=== PATIENT | female | born 1950 | race Caucasian/White ===

== ENCOUNTER 2017-05-12 10:07 | Inpatient (IN) | payer MEDICARE ==
[~2017-05-12] VITALS: Ht 160 cm; Wt 61.7 kg
[2017-05-12] MEDS ORDERED: ASPIRIN 81 MG TAB.CHEW PO ONE (10:30)
--- NOTE | 2017-05-12 10:43 | EKG ---
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
--- NOTE | 2017-05-12 10:45 | PHYS DOC ---
General Chief Complaint: SHORTNESS OF BREATH Stated Complaint: SOA Time Seen by MD: 10:23 Source: patient Exam Limitations: no limitations Problems: History of Present Illness Initial Comments Patient is a 66-year-old female who comes private auto to the emergency department complaining of chest tightness and dyspnea. Patient states that for the past 2 days she's had worsening chest discomfort described as a tightness, she states that she can feel a rattle in her chest and relays that she's had pneumonia twice in the past year. She also says she's had cold symptoms for "the past month" but feels as if those particular symptoms are improving. Patient states that her dyspnea and chest tightness were worse/at their worst this morning after waking, she denies diaphoresis, nausea vomiting, arm or neck symptoms. She does say that she's had periods of chills and sweats with a nonproductive cough. She has an extensive smoking history, she quit smoking in the early but states she essentially smoked "all her life." Currently she uses an albuterol inhaler as needed, she denies COPD/emphysema diagnoses to date. She did use her inhaler before coming which did not help she also states that when she gets her dyspnea symptoms it triggers some anxiety and one tends to worsen the other. In the emergency department patient has mild chest tightness as she described "I just can't get the air out." She's been having dyspnea on exertion she also admits to paroxysmal nocturnal dyspnea and chronically sleeps at a 45 angle upright to enhance her breathing status. During questioning patient also admits to some abdominal bloating as is observed that she is somewhat distended. She denies focal abdominal tenderness and no focal symptoms are elicited through exam. ED vital signs: 97.7, 116, 20, 148/77, 98% room air Timing/Duration: getting worse, changing over time Severity: moderate Modifying Factors: improves with medication, worse with movement, improves with rest Associated Symptoms: chest pain, cough, diaphoresis, fever/chills, loss of appetite, malaise, shortness of breath, weakness Allergies: Coded Allergies: iohexol (Verified Allergy, Intermediate, CONTRAST MEDIA, 05/12/17) Penicillins (Verified Allergy, Unknown, 05/12/17) Sulfa (Sulfonamide Antibiotics) (Verified Allergy, Unknown, 05/12/17) Past Medical History Medical History: other (diabetes, hyperlipidemia, hypertension, hypothyroidism) Surgical History: other (hysterectomy, rib removal) Social History Smoker: quit greater than 1 year Alcohol: none Drugs: none Review of Systems Constitutional: see HPI EENTM: denies blurred vision, denies tearing, denies ear pain, denies ear discharge, denies nose congestion, denies throat swelling, denies mouth swelling Respiratory: see HPI Cardiovascular: see HPI, denies syncope Gastrointestinal: see HPI, denies diarrhea, denies nausea, denies vomiting Genitourinary: denies discharge, denies dysuria, denies frequency, denies hematuria Musculoskeletal: denies back pain, denies joint swelling, denies neck pain Psychiatric/Neurological: denies headache, denies numbness, denies paresthesia , denies pre-existing deficit, denies seizure Hematologic/Lymphatic: denies blood clots, denies easy bleeding, denies easy bruising Physical Exam General Appearance: WD/WN, no apparent distress Eyes: bilateral eye normal inspection, bilateral eye PERRL, bilateral eye EOMI Ear, Nose, Throat: hearing grossly normal, normal ENT inspection, normal pharynx Neck: non-tender, full range of motion, supple, normal inspection, other ( bruising noted in the submandibular region patient states this is due to recent dental work) Respiratory: chest non-tender, decreased breath sounds, other (mildly decreased breath sounds globally with some rales at the bases, chest is nontender no respiratory distress) Cardiovascular: normal peripheral pulses, tachycardia Gastrointestinal: normal bowel sounds, soft, other (distended with mild generalized tenderness no focality, no rebound or guarding no masses palpated) Back: no CVA tenderness, no vertebral tenderness Extremities: normal range of motion, non-tender, no calf tenderness, pelvis stable, other (one plus pitting lower extremity edema) Neurologic/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 3 prior EKGs submitted to ut all with extensive artifact and essentially unusable. EKG (1039): Sinus tachycardia 106 bpm, baseline wander artifact noted, T contour abnormalities with no STEMI changes noted, no prior for comparison. Interpreted by Dr. Bingham. 1149: D-dimer elevated, as patient presents with dyspnea and chest tightness and tachycardia patient will need evaluation for pulmonary embolus. CTA of the chest initially ordered and immediately discontinued as patient has history to contrast dye. She will need a VQ scan once admitted. Patient received aspirin by mouth, Solu-Medrol and Zithromax IV as well as a DuoNeb treatment. She reports minimal improvement in symptoms. PATIENT: YARELI ODEN ACCOUNT: [id number] : 1950 LOCATION: ER AGE: 66 SEX: F EXAM STATUS: PRE ER ORD. PHYSICIAN: ADELAIDE BINGHAM DO REASON: chest pain, sob, abdominal distension PROCEDURE: ACUTE ABDOMEN SERIES Two-view abdominal series and PA view chest x-ray History: Chest pain. Bloated. Abdominal distention. Comparison: None available. Findings: No obstructive bowel pattern is seen. No significant air-fluid levels are seen. No free intraperitoneal air is seen. Spleen is enlarged measuring about 19 cm in length. Chest x-ray demonstrates bilateral interstitial lung disease and peribronchial thickening. Small bilateral pleural effusions are seen. No pneumothorax is evident. The heart size is at the upper limits of normal. The mediastinum is unremarkable. Surgical clips are seen in the left axillary region. IMPRESSION: Bilateral interstitial lung infiltrates and peribronchial thickening. This could represent interstitial pulmonary edema or interstitial pneumonitis. Small bilateral pleural effusions. Splenomegaly. DICTATED AND SIGNED BY: CRISTINA ROBERSON MD DATE: 05/12/17 2813 CC: KOKO SCHMIDT DO; ADELAIDE BINGHAM DO ~ Impressions: Respiratory distress Bilateral lower lobe infiltrates versus edema Elevated d-dimer rule out PE Chest pain Elevated BNP 1244: I discussed the patient thoroughly with information systems supervisor hospitalist Dr. Montelongo. He requests inpatient telemetry admission with Levaquin antimicrobial treatment intravenously, continued respiratory distress support, follow cardiac enzymes and obtain echocardiogram. As the patient has allergy to contrast dye VQ will be completed. Due to the mixed picture of heart failure versus pneumonia and possible PE sepsis fluid protocol not followed initially. I discussed these issues with the patient she is agreeable to inpatient treatment and further evaluation. Departure Disposition: ADMITTED INPATIENT Condition: STABLE Additional Instructions: Inpatient telemetry admission Dr. Vaughn is accepting. ADELAIDE BINGHAM DO May 12, 2017 10:45
[2017-05-12 11:02] LABS: BASO % 0 % (0-3); EOS % 1 % (0-3); HEMATOCRIT 39.6 % (36.0-47.0); LYMPH # 0.6 x10^3/uL (1.0-4.8); LYMPH % 10 % (24-48); MEAN CORPUSCULAR HEMOGLOBIN 26 pg (25-35); MEAN CORPUSCULAR HGB CONC 33 g/dL (31-37); MEAN CORPUSCULAR VOLUME 80 fL (79-100); MONO # 0.3 x10^3/uL (0.0-1.1); MONO % 6 % (0-9); NEUT # 4.5 x10^3uL (1.8-7.7); NEUT % 83 % (31-73); PLATELET COUNT 150 x10^3/uL (140-400); RED BLOOD COUNT 4.93 x10^6/uL (3.50-5.40); RED CELL DISTRIBUTION WIDTH 14.4 % (11.5-14.5); WHITE BLOOD COUNT 5.4 x10^3/uL (4.0-11.0)
[2017-05-12] MEDS ORDERED: methylPREDNISolone SOD SUCC PF 125 MG/2 ML VIAL. IV ONE (11:15)
[2017-05-12] MEDS ORDERED: IPRATRPIUM/ALBUTEROL 0.5/2.5MG 3 ML NEBU. NEB ONE (11:15)
[2017-05-12 11:18] LABS: ALBUMIN 3.8 g/dL (3.4-5.0); ALBUMIN/GLOBULIN RATIO 1.1 (1.0-1.7); CALCIUM 8.8 mg/dL (8.5-10.1); CREATININE 0.7 mg/dL (0.6-1.0); GFR 83.2; POTASSIUM 3.9 mmol/L (3.5-5.1); TOTAL BILIRUBIN 0.5 mg/dL (0.2-1.0); TOTAL PROTEIN 7.4 g/dL (6.4-8.2)
[2017-05-12] MEDS ORDERED: AZITHROMYCIN 500 MG in IV NORMAL SALINE 250ML 250 ML IV ONE (11:45)
[2017-05-12] MEDS ORDERED: IV NORMAL SALINE 250ML 250 ML ONE (11:49)
[2017-05-12] MEDS ORDERED: AZITHROMYCIN 500 MG VIAL. IV ONE (11:50)
--- NOTE | 2017-05-12 12:13 | RAD ---
Two-view abdominal series and PA view chest x-ray History: Chest pain. Bloated. Abdominal distention. Comparison: None available. Findings: No obstructive bowel pattern is seen. No significant air-fluid levels are seen. No free intraperitoneal air is seen. Spleen is enlarged measuring about 19 cm in length. Chest x-ray demonstrates bilateral interstitial lung disease and peribronchial thickening. Small bilateral pleural effusions are seen. No pneumothorax is evident. The heart size is at the upper limits of normal. The mediastinum is unremarkable. Surgical clips are seen in the left axillary region. IMPRESSION: Bilateral interstitial lung infiltrates and peribronchial thickening. This could represent interstitial pulmonary edema or interstitial pneumonitis. Small bilateral pleural effusions. Splenomegaly.
[2017-05-12 12:21] LABS: BGAS PH 7.45 (7.35-7.45)
[2017-05-12] MEDS ORDERED: ACETAMINOPHEN 325 MG TABLET PO PRN (13:00)
[2017-05-12] MEDS ORDERED: ONDANSETRON PF 4 MG/2 ML VIAL. IV PRN (13:00)
[2017-05-12 13:22] LABS: AMPHETAMINE/METHAMPHETAMINE NEG (NEG); BARBITURATES NEG (NEG); BENZODIAZEPINES NEG (NEG); CANNABINOIDS NEG (NEG); COCAINE NEG (NEG); METHADONE NEG (NEG); OPIATES NEG (NEG); PHENCYCLIDINE NEG (NEG)
[2017-05-12 13:24] LABS: BACTERIA,URINE 0 /HPF (0-FEW); BILIRUBIN,URINE NEG (NEG); CLARITY,URINE CLEAR; COLOR,URINE YELLOW; GLUCOSE,URINE NEG (NEG); NITRITE,URINE NEG (NEG); RBC,URINE 0 /HPF (0-2); SQUAMOUS EPITHELIAL CELL,UR OCC /LPF; UROBILINOGEN,URINE 0.2 mg/dL (0.2 mg/dL); WBC,URINE 0 /HPF (0-4)
[2017-05-12] MEDS ORDERED: LISI10TA2 PO (14:44)
[2017-05-12] MEDS ORDERED: CYCL5TAB PO (14:44)
[2017-05-12] MEDS ORDERED: LEVO112T4 PO (14:44)
[2017-05-12] MEDS ORDERED: FENO134C PO (14:44)
[2017-05-12] MEDS ORDERED: INSU100C SQ (14:44)
[2017-05-12] MEDS ORDERED: INSU100V13 SQ (14:44)
[2017-05-12] MEDS ORDERED: AMIT25TA PO (14:53)
[2017-05-12] MEDS ORDERED: SERT50TA PO (14:53)
[2017-05-12] MEDS ORDERED: METF10002 PO (14:53)
[2017-05-12] MEDS ORDERED: ATOR40TA59 PO (14:53)
[2017-05-12 15:00] VITALS: BP 151/61
[2017-05-12 15:04] VITALS: BP 146/72
[2017-05-12] MEDS: IPRATRPIUM/ALBUTEROL 0.5/2.5MG 3 ML NEBU. NEB SCH ×2 (15:25→20:40)
[2017-05-12] MEDS ORDERED: IV NORMAL SALINE 1,000ML 1,000 ML IV ONE ×2 (17:30→18:45)
[2017-05-12] MEDS: metFORMIN 500 MG TABLET PO SCH (18:03)
[2017-05-12] MEDS: INSULIN ASPART 300 UNITS/3 ML INSULN.PEN SQ SCH (18:06)
[2017-05-12] MEDS ORDERED: SODIUM CHLORIDE 0.65% NASAL SPRAY 45ML BOTTLE. NS PRN (18:30)
[2017-05-12] MEDS ORDERED: ACETAMINOPHEN 650 MG/20.3 ML SOLUTION. PO PRN (18:30)
[2017-05-12] MEDS: diphenhydrAMINE HCL 25 MG CAPSULE PO PRN (18:50)
[2017-05-12 19:19] VITALS: BP 135/61
[2017-05-12] MEDS: AMITRIPTYLINE HCL 25 MG TABLET PO SCH (20:38)
[2017-05-12] MEDS: CYCLOBENZAPRINE 10 MG TABLET. PO SCH (20:38)
[2017-05-12] MEDS: ENOXAPARIN ** NOTE DOSE ** SYRINGE SQ SCH (20:38)
[2017-05-12] MEDS: INSULIN DETEMIR 300 UNITS/3 ML INSULN.PEN. SQ SCH (20:39)
--- NOTE | 2017-05-12 20:48 | HP ---
ADMIT DATE: 05/12/2017 HISTORY OF PRESENT ILLNESS: The patient is a 66-year-old female patient who came to the Emergency Room today complaining of episodes of shortness of breath, orthopnea, paroxysmal nocturnal dyspnea that have been going on for a month and a half. She also has poorly controlled diabetes for which she saw an finger buffs assembler and her insulin regimen has been changed and has recurrent episodes of hypoglycemia. She was evaluated in the Emergency Room and apparently was diagnosed with bilateral lower lobe infiltrate versus edema, elevated D-dimer to rule out pulmonary embolism, chest pain and elevated BNP. She was admitted and was given steroids as well as antibiotics and we will do 2 more sets of cardiac enzymes, check her fasting lipid profile, and consult a explosive ordnance disposal specialist since her symptoms are mostly cardiac, although her D-dimer was slightly elevated at 0.86 and her lactic acid was slightly high at 3. PAST MEDICAL HISTORY: Significant for type 2 diabetes, hypertension, hyperlipidemia, hypothyroidism, osteoarthritis, psoriasis. She apparently had an episode of left side empyema and the right shoulder septic arthritis. PAST SURGICAL HISTORY: Significant for appendectomy, total abdominal hysterectomy and bilateral salpingo-oophorectomy and empyema drainage of the left chest and drainage of right shoulder joint. She has also esophagogastroduodenoscopy and colonoscopy. ALLERGIES: SHE IS ALLERGIC TO PENICILLIN, SULFA DRUGS, AND CONTRAST DYE. MEDICATIONS: She is currently on following medications: She is on amitriptyline 25 mg at bedtime, atorvastatin calcium 40 mg at bedtime, cyclobenzaprine 5 mg p.o. t.i.d., fenofibrate 134 mg once a day. She is on detemir insulin 62 units subcutaneously twice a day, insulin lispro 20 units before meals, levothyroxine sodium 112 mcg once a day, lisinopril 10 mg daily, and metformin 1000 mg p.o. b.i.d. She is also on sertraline 50 mg tablet once a day. FAMILY HISTORY: She has 2 sisters, one older that she does not keep in touch and one younger seems healthy. Her father in his early 70s because of alcoholism and mother in her early 70s because of lung cancer. SOCIAL HISTORY: She is . She has 3 sons and 1 daughter. She is an ex-smoker, quit smoking in . She used to smoke a pack a day. She said she practically has smoked all her life as a secondhand smoker. 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 REVIEW OF SYSTEMS: The patient denied any blurring of vision, cataract, glaucoma, or macular degeneration. Denied any earache, tinnitus, or sensorineural deafness. Denied any nosebleeds, stuffy nose, or postnasal drip. Denied any sore throat, sore tongue, toothache, hoarseness of voice, or difficulty swallowing. Denied any nausea, vomiting but did have diarrhea and constipation. Her abdomen is bloated, stated all because of the steroids the patient has been using for her psoriasis. She denied any hematemesis, melena, or hematochezia. Denied any dysuria, frequency, or hematuria. Did complain of chest tightness and shortness of breath and describes typical paroxysmal nocturnal dyspnea. PHYSICAL EXAMINATION: GENERAL: On arrival to the Emergency Room, she apparently was pale, but no jaundice, cyanosis or thyromegaly. No jugular venous distention. No limb edema. VITAL SIGNS: Her heart rate was 116, blood pressure was 134/65, temperature was 97.7, respiratory rate 20, and oxygen saturation was 98%. HEENT: Showed normocephalic, atraumatic. NECK: Supple. HEART: Showed normal first and second heart sounds with no gallop, rub or murmur. CHEST: Clear to auscultation. No crepitation or rhonchi. ABDOMEN: Distended, soft, nontender. No guarding or rigidity. No organomegaly. Hernial orifice is intact. Bowel sounds normal. NEUROLOGIC: She is awake, alert, responding appropriately. Cranial nerves are intact. EXTREMITIES: She moves extremities without difficulty. She ambulates without assistance or assistive devices. LABORATORY AND DIAGNOSTIC DATA: Her lab work showed a white cell count 5400, hemoglobin 13, hematocrit 39, MCV 80, and platelet count of 150,000 with normal manual differential. Her blood gases showed a pH of 7.45, pCO2 of 31, pO2 of 96, bicarbonate 21 and oxygen saturation was 98% on FiO2 of 21%. Her chemistry showed a serum sodium of 141, potassium 3.9, chloride 106, bicarbonate 23, anion gap of 12, BUN 12, creatinine 0.7, estimated GFR was 83 mL per minute. Her glucose was 82 and lactic acid was 3. Calcium was 8.8. Total bilirubin, AST, ALT, alkaline phosphatase were normal. Beta natriuretic peptide was 1420. Total protein 7.4, albumin 3.8, lipase 131. Lactic acid was 3. First cardiac enzyme was troponin less than 0.017. Her urinalysis showed the urine was yellow, clear with a pH of 6, specific gravity 1.005. The urine was negative for protein, glucose, ketones, blood, nitrite, and leukocyte esterase. There were 0 rbc's, 0 wbc's, and no bacteria. Her urine toxicology screen was essentially negative. The patient has a x-ray of the chest, abdomen and pelvis, which showed that there is no obstructive bowel pattern seen, no significant air fluid levels are seen. No free intraperitoneal air seen. Spleen is enlarged and measured about 19 cm in length. Chest x-ray demonstrates bilateral interstitial lung disease and peribronchial thickening. Small bilateral pleural effusions are seen. No pneumothorax is evident. The heart size is the upper limit of normal. The mediastinum is unremarkable. Surgical clips are seen in the left axillary region. The impression is that the patient has bilateral interstitial lung infiltrate and peribronchial thickening. This could represent interstitial pulmonary edema or interstitial pneumonitis, small bilateral pleural effusion and splenomegaly. PLAN: My plan is to continue with IV antibiotic. Continue with all her other medications. I will do 2 more sets of cardiac enzyme. We will check her fasting lipid profile and thyroid function, check an echocardiogram and consult the Cardiology team and decide the further management accordingly. OTF DRUMMOND MD DR: NATALIE/praful JOB#: [id number] / [id number]
[2017-05-13] VITALS (7 sets, daily range): BP systolic 105–136; BP diastolic 53–75
[2017-05-13] MEDS: IPRATRPIUM/ALBUTEROL 0.5/2.5MG 3 ML NEBU. NEB SCH ×4 (05:51→21:16)
[2017-05-13] MEDS: LEVOTHYROXINE 112 MCG TABLET PO SCH (05:53)
[2017-05-13 06:57] LABS: BASO % 0 % (0-3); EOS % 0 % (0-3); HEMATOCRIT 34.1 % (36.0-47.0); HEMOGLOBIN 11.2 g/dL (12.0-15.5); LYMPH # 0.6 x10^3/uL (1.0-4.8); LYMPH % 9 % (24-48); MEAN CORPUSCULAR HEMOGLOBIN 27 pg (25-35); MEAN CORPUSCULAR HGB CONC 33 g/dL (31-37); MEAN CORPUSCULAR VOLUME 81 fL (79-100); MONO # 0.2 x10^3/uL (0.0-1.1); MONO % 4 % (0-9); NEUT # 5.2 x10^3uL (1.8-7.7); NEUT % 86 % (31-73); PLATELET COUNT 145 x10^3/uL (140-400); RED BLOOD COUNT 4.22 x10^6/uL (3.50-5.40); RED CELL DISTRIBUTION WIDTH 14.6 % (11.5-14.5)
[2017-05-13 07:06] LABS: ALBUMIN 3.3 g/dL (3.4-5.0); CALCIUM 8.7 mg/dL (8.5-10.1); CREATININE 0.8 mg/dL (0.6-1.0); GFR 71.3; POTASSIUM 4.2 mmol/L (3.5-5.1); TOTAL BILIRUBIN 0.4 mg/dL (0.2-1.0); TOTAL PROTEIN 6.7 g/dL (6.4-8.2)
[2017-05-13] MEDS: SERTRALINE 50 MG TABLET. PO SCH (08:14)
[2017-05-13] MEDS: metFORMIN 500 MG TABLET PO SCH ×2 (08:14→16:21)
[2017-05-13] MEDS: ATORVASTATIN CALCIUM 20 MG TABLET PO SCH (08:14)
[2017-05-13] MEDS: LISINOPRIL 10 MG TABLET PO SCH (08:14)
[2017-05-13] MEDS: CYCLOBENZAPRINE 10 MG TABLET. PO SCH ×3 (08:15→21:22)
[2017-05-13] MEDS: FENOFIBRATE NANOCRYSTALLIZED 145 MG TABLET PO SCH (08:15)
[2017-05-13] MEDS: ENOXAPARIN ** NOTE DOSE ** SYRINGE SQ SCH (08:15)
[2017-05-13] MEDS: INSULIN ASPART 300 UNITS/3 ML INSULN.PEN SQ SCH ×3 (08:20→16:20)
[2017-05-13] MEDS: INSULIN DETEMIR 300 UNITS/3 ML INSULN.PEN. SQ SCH ×2 (08:21→21:24)
[2017-05-13] MEDS ORDERED: IV NORMAL SALINE 1,000ML 1,000 ML IV ONE (09:15)
--- NOTE | 2017-05-13 09:50 | PDOC2 ---
JAY MELVIN APRN 05/13/17 0950: CONSULT Date of Admission DATE: 05/13/17 TIME: 09:50 Reason for Consult: chest pain Problem List Problems Medical Problems: (1) Pneumonia Status: Acute History of Present Illness Ms Dooley is a 66 year old female who presents with complaints of orthopnea/PND and chest tightness. She reports episodes of PND starting about 1 month ago and has been sleeping with head of bed at 45 degree angle for quiet some time. She describes the chest tightness as a feeling of not being able to get a deep breath. she denies palpitatons, lightheadedness or syncope. She reports occasional edema during the summer. She reports feeling like her belly is swollen. Past Medical History hypertension, hyperlipidemia, diabetes mellitus, hypothyroid, septic arthritis Past Surgical History hysterectomy, oophorectomy , drainage of empyema left chest and shoulder, bladder suspension Family History Her father in his early 70s because of alcoholism and mother in her early 70s because of lung cancer and had history of heart failure. Social History quit smoking in , smoked 1PPD for most of her life. She denies ETOH or illicit drug use. Current Medications Current Medications Aspirin (Children'S Aspirin) 324 mg 1X ONCE PO Last administered on 05/12/17 10:55; Start 05/12/17 at 10:30; Stop 05/12/17 at 10:35; Status DC Albuterol/ Ipratropium (Duoneb) 3 ml 1X ONCE NEB Last administered on 11:20; Start 05/12/17 at 11:15; Stop 05/12/17 at 11:16; Status DC Methylprednisolone Sodium Succinate (SOLU-Medrol 125MG VIAL) 125 mg 1X ONCE IV Last administered on 05/12/17 11:27; Start 05/12/17 at 11:15; Stop 05/12/17 at 11:16; Status DC Azithromycin 500 mg/Sodium Chloride 250 ml @ 250 mls/hr 1X ONCE IV Last administered on 05/12/17 11:45; Start 05/12/17 at 11:45; Stop 05/12/17 at 12:44 ; Status DC Sodium Chloride 250 ml @ As Directed STK-MED ONCE .ROUTE ; Start 05/12/17 at 11 :49; Stop 05/12/17 at 11:50; Status DC Azithromycin (Zithromax) 500 mg STK-MED ONCE IV ; Start 05/12/17 at 11:50; Stop 05/12/17 at 11:51; Status DC Ondansetron HCl (Zofran) 4 mg PRN Q4HRS PRN IV NAUSEA/VOMITING; Start 05/12/17 at 13:00; Stop 05/13/17 at 12:59 Acetaminophen (Tylenol) 650 mg PRN Q4HRS PRN PO FEVER Last administered on 05/12 18:50; Start 05/12/17 at 13:00; Stop 05/13/17 at 12:59 Albuterol/ Ipratropium (Duoneb) 3 ml RTQID NEB Last administered on 05/13/17 09:49; Start 05/12/17 at 16:00; Stop 05/13/17 at 15:59 Amitriptyline HCl (Elavil) 25 mg QHS PO Last administered on 05/12/17 20:38; Start 05/12/17 at 21:00 Levothyroxine Sodium (Synthroid) 112 mcg DAILY07 PO Last administered on 05:53; Start 05/13/17 at 07:00 Lisinopril (Prinivil) 10 mg DAILY PO Last administered on 05/13/17 08:14; Start 05/13/17 at 09:00 Sertraline HCl (Zoloft) 50 mg DAILY PO Last administered on 05/13/17 08:14; Start 05/13/17 at 09:00 Atorvastatin Calcium (Lipitor) 40 mg DAILY PO Last administered on 05/13/17 08 :14; Start 05/13/17 at 09:00 Cyclobenzaprine HCl (Flexeril) 5 mg TID PO Last administered on 05/13/17 08:15 ; Start 05/12/17 at 21:00 Fenofibrate (Tricor) 145 mg DAILY PO Last administered on 05/13/17 08:15; Start 05/13/17 at 09:00 Insulin Detemir (Levemir) 62 units BID SQ Last administered on 05/13/17 08:21 ; Start 05/12/17 at 21:00 Insulin Aspart (NovoLOG) 20 units TIDWMEALS SQ Last administered on 05/13/17 08:20; Start 05/12/17 at 18:00 Metformin HCl (Glucophage) 1,000 mg BIDWMEALS PO Last administered on 08:14; Start 05/12/17 at 18:00 Levofloxacin/ Dextrose 100 ml @ 100 mls/hr Q24H IV Last administered on 18:02; Start 05/12/17 at 18:00 Enoxaparin Sodium (Lovenox 60mg Syringe) 60 mg Q12HR SQ Last administered on 08:15; Start 05/12/17 at 21:00 Sodium Chloride 1,000 ml @ 1,000 mls/hr 1X ONCE IV Last administered on 17:30; Start 05/12/17 at 17:30; Stop 05/12/17 at 18:29; Status DC Sodium Chloride (Saline Mist Nasal) 1 t[place]ira PRN Q1HR PRN NS NASAL CONGESTION; Start 05/12/17 at 18:30 Acetaminophen (Tylenol) 650 mg PRN Q6HRS PRN PO PAIN / TEMP; Start 05/12/17 at 18:30 Diphenhydramine HCl (Benadryl) 25 mg PRN Q6HRS PRN PO ITCHING Last administered on 05/12/17 18:50; Start 05/12/17 at 18:30 Sodium Chloride 1,000 ml @ 1,000 mls/hr 1X ONCE IV Last administered on 18:00; Start 05/12/17 at 18:45; Stop 05/12/17 at 19:44; Status DC Sodium Chloride 1,000 ml @ 1,000 mls/hr 1X ONCE IV Last administered on 09:28; Start 05/13/17 at 09:15; Stop 05/13/17 at 10:14 Active Scripts Active Reported Amitriptyline Hcl 25 Mg Tablet 1 Tab PO QHS Atorvastatin Calcium 40 Mg Tablet 1 Tab PO DAILY Metformin Hcl 1,000 Mg Tablet 1 Tab PO BID Zoloft (Sertraline Hcl) 50 Mg Tablet 1 Tab PO DAILY Humalog (Insulin Lispro) 100 Unit/1 Ml Cartridge 20 Unit SQ TID Levemir (Insulin Detemir) 100 Unit/1 Ml Vial 62 Unit SQ BID Lisinopril 10 Mg Tablet 1 Tab PO DAILY Fenofibrate (Fenofibrate,Micronized) 134 Mg Capsule 1 Cap PO DAILY Cyclobenzaprine Hcl 5 Mg Tablet 1 Tab PO TID Levothyroxine Sodium 112 Mcg Tablet 1 Tab PO DAILY Allergies: Coded Allergies: Penicillins (Verified Allergy, Intermediate, 05/13/17) Sulfa (Sulfonamide Antibiotics) (Verified Allergy, Intermediate, 05/13/17) iohexol (Verified Allergy, Intermediate, CONTRAST MEDIA, 05/12/17) Review of System as per HPI General: Alert, Oriented X3, Cooperative, No acute distress HEENT: Atraumatic, Other (+HJR) Lungs: Other (bibasilar crackles) Heart: Regular rate, Normal S1, Normal S2, Other (no gallops, clicks or rubs) Abdomen: Soft, Other (distended, + bowel sounds) Extremities: No cyanosis, No edema, Normal pulses, Other (chronic venous stasis changes) Neuro: Normal speech, Strength at 5/5 X4 ext Psych/Mental Status: Mental status NL, Mood NL VITALS Vital Signs Date Time Temp Pulse Resp B/P (MAP) Pulse Ox O2 Delivery O2 Flow Rate FiO2 05/13/17 08:14 110 135/75 05/13/17 08:00 Room Air 05/13/17 07:00 98.1 20 98 05/13/17 05:51 2.0 Labs Laboratory Tests Test 05/12/17 10:42 05/12/17 12:15 05/12/17 13:05 05/12/17 14:48 White Blood Count 5.4 x10^3/uL (4.0-11.0) Red Blood Count 4.93 x10^6/uL (3.50-5.40) Hemoglobin 13.0 g/dL (12.0-15.5) Hematocrit 39.6 % (36.0-47.0) Mean Corpuscular Volume 80 fL (79-100) Mean Corpuscular Hemoglobin 26 pg (25-35) Mean Corpuscular Hemoglobin Concent 33 g/dL (31-37) Red Cell Distribution Width 14.4 % (11.5-14.5) Platelet Count 150 x10^3/uL (140-400) Neutrophils (%) (Auto) 83 % (31-73) Lymphocytes (%) (Auto) 10 % (24-48) Monocytes (%) (Auto) 6 % (0-9) Eosinophils (%) (Auto) 1 % (0-3) Basophils (%) (Auto) 0 % (0-3) Neutrophils # (Auto) 4.5 x10^3uL (1.8-7.7) Lymphocytes # (Auto) 0.6 x10^3/uL (1.0-4.8) Monocytes # (Auto) 0.3 x10^3/uL (0.0-1.1) Eosinophils # (Auto) 0.0 x10^3/uL (0.0-0.7) Basophils # (Auto) 0.0 x10^3/uL (0.0-0.2) D-Dimer (Nichole) 0.86 mg/L (0.00-0.50) Sodium Level 141 mmol/L (136-145) Potassium Level 3.9 mmol/L (3.5-5.1) Chloride Level 106 mmol/L (98-107) Carbon Dioxide Level 23 mmol/L (21-32) Anion Gap 12 (6-14) Blood Urea Nitrogen 12 mg/dL (7-20) Creatinine 0.7 mg/dL (0.6-1.0) Estimated GFR (Cockcroft-Gault) 83.2 BUN/Creatinine Ratio 17 (6-20) Glucose Level 82 mg/dL (70-99) Lactic Acid Level 3.0 mmol/L (0.4-2.0) Calcium Level 8.8 mg/dL (8.5-10.1) Total Bilirubin 0.5 mg/dL (0.2-1.0) Aspartate Amino Transf (AST/SGOT) 31 U/L (15-37) Alanine Aminotransferase (ALT/SGPT) 41 U/L (14-59) Alkaline Phosphatase 63 U/L (46-116) Creatine Kinase 62 U/L (26-192) Troponin I Quantitative < 0.017 ng/mL (0-0.055) EE-Xsk-O-Type Natriuretic Peptide 1420 pg/mL (0-124) Total Protein 7.4 g/dL (6.4-8.2) Albumin 3.8 g/dL (3.4-5.0) Albumin/Globulin Ratio 1.1 (1.0-1.7) Lipase 131 U/L (73-393) Blood Gas pH 7.45 (7.35-7.45) Blood Gas PCO2 31 mmHg (35-45) Blood Gas PO2 96 mmHg (80-100) Blood Gas HCO3 21 mmol/L (22-26) Arterial Bld O2 Saturation (Calc) 98 % (92-99) FiO2 21 % Urine Collection Type Unknown Urine Color Yellow Urine Clarity Clear Urine pH 6.0 Urine Specific [place] <=1.005 Urine Protein Neg (NEG-TRACE) Urine Glucose (UA) Neg mg/dL (NEG) Urine Ketones (Stick) Neg mg/dL (NEG) Urine Blood Neg (NEG) Urine Nitrite Neg (NEG) Urine Bilirubin Neg (NEG) Urine Urobilinogen Dipstick 0.2 mg/dL (0.2 mg/dL) Urine Leukocyte Esterase Neg (NEG) Urine RBC 0 /HPF (0-2) Urine WBC 0 /HPF (0-4) Urine Squamous Epithelial Cells Occ /LPF Urine Bacteria 0 /HPF (0-FEW) Urine Opiates Screen Neg (NEG) Urine Methadone Screen Neg (NEG) Urine Barbiturates Neg (NEG) Urine Phencyclidine Screen Neg (NEG) Urine Amphetamine/Methamphetamine Neg (NEG) Urine Benzodiazepines Screen Neg (NEG) Urine Cocaine Screen Neg (NEG) Urine Cannabinoids Screen Neg (NEG) Urine Ethyl Alcohol Neg (NEG) Nasal Screen MRSA (PCR) Negative (Negative) Test 05/12/17 15:50 05/12/17 15:55 05/12/17 16:39 05/12/17 18:25 Glucose (Fingerstick) 174 mg/dL (70-99) 225 mg/dL (70-99) Lactic Acid Level 4.2 mmol/L (0.4-2.0) Troponin I Quantitative < 0.017 ng/mL (0-0.055) Test 05/12/17 20:28 05/13/17 00:30 05/13/17 03:23 05/13/17 06:01 Glucose (Fingerstick) 255 mg/dL (70-99) 152 mg/dL (70-99) Troponin I Quantitative < 0.017 ng/mL (0-0.055) White Blood Count 6.0 x10^3/uL (4.0-11.0) Red Blood Count 4.22 x10^6/uL (3.50-5.40) Hemoglobin 11.2 g/dL (12.0-15.5) Hematocrit 34.1 % (36.0-47.0) Mean Corpuscular Volume 81 fL (79-100) Mean Corpuscular Hemoglobin 27 pg (25-35) Mean Corpuscular Hemoglobin Concent 33 g/dL (31-37) Red Cell Distribution Width 14.6 % (11.5-14.5) Platelet Count 145 x10^3/uL (140-400) Neutrophils (%) (Auto) 86 % (31-73) Lymphocytes (%) (Auto) 9 % (24-48) Monocytes (%) (Auto) 4 % (0-9) Eosinophils (%) (Auto) 0 % (0-3) Basophils (%) (Auto) 0 % (0-3) Neutrophils # (Auto) 5.2 x10^3uL (1.8-7.7) Lymphocytes # (Auto) 0.6 x10^3/uL (1.0-4.8) Monocytes # (Auto) 0.2 x10^3/uL (0.0-1.1) Eosinophils # (Auto) 0.0 x10^3/uL (0.0-0.7) Basophils # (Auto) 0.0 x10^3/uL (0.0-0.2) Sodium Level 142 mmol/L (136-145) Potassium Level 4.2 mmol/L (3.5-5.1) Chloride Level 106 mmol/L (98-107) Carbon Dioxide Level 25 mmol/L (21-32) Anion Gap 11 (6-14) Blood Urea Nitrogen 15 mg/dL (7-20) Creatinine 0.8 mg/dL (0.6-1.0) Estimated GFR (Cockcroft-Gault) 71.3 BUN/Creatinine Ratio 19 (6-20) Glucose Level 135 mg/dL (70-99) Lactic Acid Level 2.9 mmol/L (0.4-2.0) Calcium Level 8.7 mg/dL (8.5-10.1) Total Bilirubin 0.4 mg/dL (0.2-1.0) Aspartate Amino Transf (AST/SGOT) 22 U/L (15-37) Alanine Aminotransferase (ALT/SGPT) 36 U/L (14-59) Alkaline Phosphatase 54 U/L (46-116) Total Protein 6.7 g/dL (6.4-8.2) Albumin 3.3 g/dL (3.4-5.0) Albumin/Globulin Ratio 1.0 (1.0-1.7) Test 05/13/17 07:38 Glucose (Fingerstick) 125 mg/dL (70-99) Images Abdominal series IMPRESSION: Bilateral interstitial lung infiltrates and peribronchial thickening. This could represent interstitial pulmonary edema or interstitial pneumonitis. Small bilateral pleural effusions. Assessment/Plan 1. CHF - CXR this am, lasix x 1 now, await echo for systolic function. 2. Chest pain - Darryn negative. EKG without acute ischemic changes. Check echo. 3. hypertension - controlled on home meds 4. hyperlipidemia - check lipids and resume statin Problems: JOSE RAMON PEREIRA MD 05/13/17 1502: CONSULT Allergies: Coded Allergies: Penicillins (Verified Allergy, Intermediate, 05/13/17) Sulfa (Sulfonamide Antibiotics) (Verified Allergy, Intermediate, 05/13/17) iohexol (Verified Allergy, Intermediate, CONTRAST MEDIA, 05/12/17) Assessment/Plan Patient seen and examined. Agree with MANAGER TARGET's assessment and plan. Chest pain with atypical features. Myocardial infarction ruled out. Congestive heart failure most probably acute on chronic diastolic, better compensated with Lasix. Check 2-D echo to assess LV function and rule out wall motion abnormalities. Further ischemic workup in the formal stress test could be considered as an outpatient. Thank you for your consultation. Problems: JAY MELVIN APRN May 13, 2017 09:50 JOSE RAMON PEREIRA MD May 13, 2017 15:02
[2017-05-13] MEDS ORDERED: FUROSEMIDE 20 MG/2 ML VIAL IVP ONE (12:00)
--- NOTE | 2017-05-13 12:59 | RAD ---
V/Q lung scan History: Elevated d-dimer. Chest pain. Comparison: Chest x-ray dated May 13, 2017. No previous lung scan available. Technique: After inhalation of 12.7 mCi of xenon-133 gas, anterior and posterior planar images of both lung omalley were performed in the single breath, equilibrium and washout phases. After IV infusion of 5.3 mCi of technetium 99m MAA, multiplanar images of both lung omalley were performed. Findings: No ventilatory defect or significant air-trapping is seen. Normal physiologic perfusion is seen. IMPRESSION: Normal V/Q lung scan.
--- NOTE | 2017-05-13 16:31 | RAD ---
Two-view chest x-ray History: Dyspnea Comparison: May 12, 2017. Findings: There is an increase in bilateral interstitial lung infiltrates or pulmonary edema. Small bilateral pleural effusions are stable. No pneumothorax is seen. The heart size and mediastinum and pulmonary vasculature are unchanged. Osseous structures remain intact. Surgical clips are seen within the left axillary region. IMPRESSION: Increasing bilateral interstitial infiltrates or interstitial pulmonary edema.
--- NOTE | 2017-05-13 17:31 | CARD ---
APPROVED REPORT EXAM: Two-dimensional and M-mode echocardiogram with Doppler and color Doppler. Other Information Quality : Good INDICATION Chest Pain Congestive Heart Failure DX ELEVATED BNP 2D DIMENSIONS Left Atrium(2D)3.9 (1.6-4.0cm)IVSd1.1 (0.7-1.1cm) Aortic Root(2D)2.9 (2.0-3.7cm)LVDd5.6 (3.9-5.9cm) LVOT Diameter2.0 (1.8-2.4cm)PWd1.2 (0.7-1.1cm) LVDs4.7 (2.5-4.0cm)FS (%) 16.4 % SV52.0 mlLVEF(%)34.0 (>50%) Aortic Valve AoV Peak Davy.109.3cm/sAoV VTI19.7cm AO Peak GR.4.8mmHgLVOT Peak Davy.71.4cm/s LVOT VTI 12.96cmAO Mean GR.3mmHg RYDER (VMAX)1.64ww7ZQR (VTI)1.99cm2 Mitral Valve MV E Ymbvkcik071.6cm/sMV DECEL [id number] MV A Ujhufkdn57.6cm/sE/A Ratio2.6 Tricuspid Valve TR P. [id number]/sRAP [id number] TR Peak Gr.28xdAlEYRU39rmRh LEFT VENTRICLE The Left Ventricle is mildly dilated. There is mild concentric left ventricular hypertrophy. Left ayaan tricle systolic function is moderately impaired. The Ejection Fraction is 30%. There is moderate glob al hypokinesis of the left ventricle. Tissue Doppler imaging reveals abnormal left ventricular diasto lic dysfunction. RIGHT VENTRICLE The right ventricle is normal size. The right ventricular systolic function is normal. ATRIA The left atrium is mildly dilated. The right atrium size is normal. The interatrial septum is intact with no evidence for an atrial septal defect or patent foramen ovale as noted on 2-D or Doppler imagi ng. AORTIC VALVE The aortic valve is calcified but opens well. Doppler and Color Flow revealed trace to mild aortic re gurgitation. There is no significant aortic valvular stenosis. MITRAL VALVE The mitral valve is calcified but opens well. There is no evidence of mitral valve prolapse. There is no mitral valve stenosis. Doppler and Color-flow revealed mild mitral regurgitation. TRICUSPID VALVE The tricuspid valve is normal in structure and function. Doppler and Color Flow revealed mild tricusp id regurgitation. There is moderate pulmonary hypertension. The PA pressure was estimated at 42 mmHg. There is no tricuspid valve prolapse or vegetation. There is no tricuspid valve stenosis. PULMONIC VALVE The pulmonary valve is normal in structure and function. Doppler and Color Flow revealed no pulmonic valvular regurgitation. There is no pulmonic valvular stenosis. GREAT VESSELS The aortic root is normal in size. The ascending aorta is normal in size. The IVC is normal in size a nd collapses >50% with inspiration. PERICARDIAL EFFUSION Possible moderate to large left sided pleural effusion with a large sonolucent mass present. There is no evidence of significant pericardial effusion. Critical Notification Critical Value: No <Conclusion> Left ventricle systolic function is moderately impaired. The Ejection Fraction is 30%. Mild mitral regurgitation. Mild tricuspid regurgitation. The PA pressure was estimated at 42 mmHg. There is no evidence of significant pericardial effusion.
[2017-05-13] MEDS: diphenhydrAMINE HCL 25 MG CAPSULE PO PRN (21:22)
[2017-05-13] MEDS: AMITRIPTYLINE HCL 25 MG TABLET PO SCH (21:22)
[2017-05-13] MEDS: LACTOBACILLUS ACIDOPH & BULGAR 1 TABLET. PO SCH (21:22)
[2017-05-14 03:00] VITALS: BP 132/61
[2017-05-14] MEDS ORDERED: IPRATRPIUM/ALBUTEROL 0.5/2.5MG 3 ML NEBU. ONE (05:10)
[2017-05-14 06:27] LABS: HEMATOCRIT 35.7 % (36.0-47.0); HEMOGLOBIN 11.8 g/dL (12.0-15.5); RED BLOOD COUNT 4.42 x10^6/uL (3.50-5.40); RED CELL DISTRIBUTION WIDTH 14.7 % (11.5-14.5); WHITE BLOOD COUNT 5.8 x10^3/uL (4.0-11.0)
[2017-05-14 06:41] LABS: ALBUMIN 3.7 g/dL (3.4-5.0); CALCIUM 8.9 mg/dL (8.5-10.1); CREATININE 0.9 mg/dL (0.6-1.0); GFR 62.3; POTASSIUM 3.4 mmol/L (3.5-5.1); TOTAL BILIRUBIN 0.9 mg/dL (0.2-1.0); TOTAL PROTEIN 7.3 g/dL (6.4-8.2)
[2017-05-14] MEDS: LEVOTHYROXINE 112 MCG TABLET PO SCH (07:36)
--- NOTE | 2017-05-14 07:40 | PN ---
DATE: 05/13/2017 SUBJECTIVE: The patient is resting, slightly propped up in bed, in no apparent distress. On questioning her, she stated that she continued to have the same problem last night and paroxysmal nocturnal dyspnea as well as orthopnea. She has had 3 sets of cardiac enzymes that ruled out myocardial infarction with troponin to be less than 0.0173. She had a V/Q scan done as her D-dimer was slightly elevated at 0.86 and was read as negative, which showed that there is no ventilatory defect or significant airtrapping was seen, normal physiology perfusion is seen. The impression is that the patient has normal V/Q lung scan. She was seen by the Cardiology team and she was given Lasix this morning and recommended an echocardiogram to check her systolic function. IMPRESSION: The patient has congestive heart failure, probably acute on chronic diastolic. She had a chest x-ray done, the results of which is still pending and an echocardiogram, which was not done. She also has bilateral lower lobe infiltrate for which she is on Levaquin. PLAN: My plan is to continue with IV antibiotic. I cut down her Lovenox to only 40 mg once a day and we will repeat all her lab works tomorrow and obviously, decide according to the finding on her chest x-ray as well as her echocardiogram. OTF DRUMMOND MD DR: NATALIE/praful JOB#: [id number] / [id number]
[2017-05-14] MEDS: LACTOBACILLUS ACIDOPH & BULGAR 1 TABLET. PO SCH (08:17)
[2017-05-14] MEDS: CYCLOBENZAPRINE 10 MG TABLET. PO SCH ×2 (08:17→14:19)
[2017-05-14] MEDS: FENOFIBRATE NANOCRYSTALLIZED 145 MG TABLET PO SCH (08:17)
[2017-05-14] MEDS: ATORVASTATIN CALCIUM 20 MG TABLET PO SCH (08:17)
[2017-05-14] MEDS: SERTRALINE 50 MG TABLET. PO SCH (08:17)
[2017-05-14] MEDS: metFORMIN 500 MG TABLET PO SCH (08:17)
[2017-05-14] MEDS: LISINOPRIL 10 MG TABLET PO SCH (08:18)
[2017-05-14] MEDS: INSULIN ASPART 300 UNITS/3 ML INSULN.PEN SQ SCH ×2 (08:28→12:00)
[2017-05-14] MEDS: INSULIN DETEMIR 300 UNITS/3 ML INSULN.PEN. SQ SCH (08:29)
[2017-05-14] MEDS ORDERED: ENOXAPARIN 40 MG/0.4 ML DISP.SYRIN. SQ SCH (09:00)
[2017-05-14] MEDS: IPRATRPIUM/ALBUTEROL 0.5/2.5MG 3 ML NEBU. NEB SCH (09:44)
[2017-05-14] MEDS ORDERED: POTASSIUM CHLORIDE 20 MEQ TABLET.ER. PO SCH (10:15)
[2017-05-14] MEDS ORDERED: FUROSEMIDE 40 MG/4 ML VIAL IVP SCH (10:15)
--- NOTE | 2017-05-14 10:20 | PDOC ---
PROGRESS NOTES Diagnosis Problem Problems Medical Problems: (1) Pneumonia Status: Acute Assessment Problems Medical Problems: (1) Pneumonia Status: Acute 1. Acute systolic heart failure - EF 30%. Increasing edema by CXR, clinically improving. One dose lasix today. Continue ACEI, add carvedilol. Will need cardiac cath. 2. Chest pain - Darryn negative. EKG without acute ischemic changes. EF decreased. Cath if she agrees. 3. hypertension - controlled 4. hyperlipidemia - check lipids and continue statin Problems: Subjective feeling better, less dyspnea, no edema, no chest pain Objective Vital Signs Date Time Temp Pulse Resp B/P (MAP) Pulse Ox O2 Delivery O2 Flow Rate FiO2 05/14/17 09:56 98 Nasal Cannula 2.0 05/14/17 08:18 104 132/61 05/14/17 03:00 18 05/13/17 15:38 98.4 Intake and Output 05/15/17 07:00 Intake Total 240 ml Balance 240 ml Intake Oral 240 ml Abdomen: Normal bowel sounds, Soft Heart: Regular rate, Normal S1, Normal S2 Extremities: No cyanosis, Normal pulses General: Alert, Oriented X3, Cooperative, No acute distress Lungs: Other (mildly decreased bases) Neuro: Normal speech, Strength at 5/5 X4 ext Psych/Mental Status: Mental status NL, Mood NL Review of Relevant I have reviewed the following items matias (where applicable) has been applied. Labs Laboratory Tests Test 05/12/17 10:42 05/12/17 12:15 05/12/17 13:05 05/12/17 14:48 White Blood Count 5.4 x10^3/uL (4.0-11.0) Red Blood Count 4.93 x10^6/uL (3.50-5.40) Hemoglobin 13.0 g/dL (12.0-15.5) Hematocrit 39.6 % (36.0-47.0) Mean Corpuscular Volume 80 fL (79-100) Mean Corpuscular Hemoglobin 26 pg (25-35) Mean Corpuscular Hemoglobin Concent 33 g/dL (31-37) Red Cell Distribution Width 14.4 % (11.5-14.5) Platelet Count 150 x10^3/uL (140-400) Neutrophils (%) (Auto) 83 % (31-73) Lymphocytes (%) (Auto) 10 % (24-48) Monocytes (%) (Auto) 6 % (0-9) Eosinophils (%) (Auto) 1 % (0-3) Basophils (%) (Auto) 0 % (0-3) Neutrophils # (Auto) 4.5 x10^3uL (1.8-7.7) Lymphocytes # (Auto) 0.6 x10^3/uL (1.0-4.8) Monocytes # (Auto) 0.3 x10^3/uL (0.0-1.1) Eosinophils # (Auto) 0.0 x10^3/uL (0.0-0.7) Basophils # (Auto) 0.0 x10^3/uL (0.0-0.2) D-Dimer (Nichole) 0.86 mg/L (0.00-0.50) Sodium Level 141 mmol/L (136-145) Potassium Level 3.9 mmol/L (3.5-5.1) Chloride Level 106 mmol/L (98-107) Carbon Dioxide Level 23 mmol/L (21-32) Anion Gap 12 (6-14) Blood Urea Nitrogen 12 mg/dL (7-20) Creatinine 0.7 mg/dL (0.6-1.0) Estimated GFR (Cockcroft-Gault) 83.2 BUN/Creatinine Ratio 17 (6-20) Glucose Level 82 mg/dL (70-99) Lactic Acid Level 3.0 mmol/L (0.4-2.0) Calcium Level 8.8 mg/dL (8.5-10.1) Total Bilirubin 0.5 mg/dL (0.2-1.0) Aspartate Amino Transf (AST/SGOT) 31 U/L (15-37) Alanine Aminotransferase (ALT/SGPT) 41 U/L (14-59) Alkaline Phosphatase 63 U/L (46-116) Creatine Kinase 62 U/L (26-192) Troponin I Quantitative < 0.017 ng/mL (0-0.055) BI-Hcv-F-Type Natriuretic Peptide 1420 pg/mL (0-124) Total Protein 7.4 g/dL (6.4-8.2) Albumin 3.8 g/dL (3.4-5.0) Albumin/Globulin Ratio 1.1 (1.0-1.7) Lipase 131 U/L (73-393) Blood Gas pH 7.45 (7.35-7.45) Blood Gas PCO2 31 mmHg (35-45) Blood Gas PO2 96 mmHg (80-100) Blood Gas HCO3 21 mmol/L (22-26) Arterial Bld O2 Saturation (Calc) 98 % (92-99) FiO2 21 % Urine Collection Type Unknown Urine Color Yellow Urine Clarity Clear Urine pH 6.0 Urine Specific [place] <=1.005 Urine Protein Neg (NEG-TRACE) Urine Glucose (UA) Neg mg/dL (NEG) Urine Ketones (Stick) Neg mg/dL (NEG) Urine Blood Neg (NEG) Urine Nitrite Neg (NEG) Urine Bilirubin Neg (NEG) Urine Urobilinogen Dipstick 0.2 mg/dL (0.2 mg/dL) Urine Leukocyte Esterase Neg (NEG) Urine RBC 0 /HPF (0-2) Urine WBC 0 /HPF (0-4) Urine Squamous Epithelial Cells Occ /LPF Urine Bacteria 0 /HPF (0-FEW) Urine Opiates Screen Neg (NEG) Urine Methadone Screen Neg (NEG) Urine Barbiturates Neg (NEG) Urine Phencyclidine Screen Neg (NEG) Urine Amphetamine/Methamphetamine Neg (NEG) Urine Benzodiazepines Screen Neg (NEG) Urine Cocaine Screen Neg (NEG) Urine Cannabinoids Screen Neg (NEG) Urine Ethyl Alcohol Neg (NEG) Nasal Screen MRSA (PCR) Negative (Negative) Test 05/12/17 15:50 05/12/17 15:55 05/12/17 16:39 05/12/17 18:25 Glucose (Fingerstick) 174 mg/dL (70-99) 225 mg/dL (70-99) Lactic Acid Level 4.2 mmol/L (0.4-2.0) Troponin I Quantitative < 0.017 ng/mL (0-0.055) Test 05/12/17 20:28 05/13/17 00:30 05/13/17 03:23 05/13/17 06:01 Glucose (Fingerstick) 255 mg/dL (70-99) 152 mg/dL (70-99) Troponin I Quantitative < 0.017 ng/mL (0-0.055) White Blood Count 6.0 x10^3/uL (4.0-11.0) Red Blood Count 4.22 x10^6/uL (3.50-5.40) Hemoglobin 11.2 g/dL (12.0-15.5) Hematocrit 34.1 % (36.0-47.0) Mean Corpuscular Volume 81 fL (79-100) Mean Corpuscular Hemoglobin 27 pg (25-35) Mean Corpuscular Hemoglobin Concent 33 g/dL (31-37) Red Cell Distribution Width 14.6 % (11.5-14.5) Platelet Count 145 x10^3/uL (140-400) Neutrophils (%) (Auto) 86 % (31-73) Lymphocytes (%) (Auto) 9 % (24-48) Monocytes (%) (Auto) 4 % (0-9) Eosinophils (%) (Auto) 0 % (0-3) Basophils (%) (Auto) 0 % (0-3) Neutrophils # (Auto) 5.2 x10^3uL (1.8-7.7) Lymphocytes # (Auto) 0.6 x10^3/uL (1.0-4.8) Monocytes # (Auto) 0.2 x10^3/uL (0.0-1.1) Eosinophils # (Auto) 0.0 x10^3/uL (0.0-0.7) Basophils # (Auto) 0.0 x10^3/uL (0.0-0.2) Sodium Level 142 mmol/L (136-145) Potassium Level 4.2 mmol/L (3.5-5.1) Chloride Level 106 mmol/L (98-107) Carbon Dioxide Level 25 mmol/L (21-32) Anion Gap 11 (6-14) Blood Urea Nitrogen 15 mg/dL (7-20) Creatinine 0.8 mg/dL (0.6-1.0) Estimated GFR (Cockcroft-Gault) 71.3 BUN/Creatinine Ratio 19 (6-20) Glucose Level 135 mg/dL (70-99) Lactic Acid Level 2.9 mmol/L (0.4-2.0) Calcium Level 8.7 mg/dL (8.5-10.1) Total Bilirubin 0.4 mg/dL (0.2-1.0) Aspartate Amino Transf (AST/SGOT) 22 U/L (15-37) Alanine Aminotransferase (ALT/SGPT) 36 U/L (14-59) Alkaline Phosphatase 54 U/L (46-116) Total Protein 6.7 g/dL (6.4-8.2) Albumin 3.3 g/dL (3.4-5.0) Albumin/Globulin Ratio 1.0 (1.0-1.7) Thyroid Stimulating Hormone (TSH) 0.401 uIU/mL (0.358-3.740) Test 05/13/17 07:38 05/13/17 10:47 05/13/17 11:29 05/13/17 16:18 Glucose (Fingerstick) 125 mg/dL (70-99) 120 mg/dL (70-99) 82 mg/dL (70-99) Lactic Acid Level 2.8 mmol/L (0.4-2.0) Test 05/13/17 21:16 05/14/17 05:58 05/14/17 07:26 Glucose (Fingerstick) 170 mg/dL (70-99) 120 mg/dL (70-99) White Blood Count 5.8 x10^3/uL (4.0-11.0) Red Blood Count 4.42 x10^6/uL (3.50-5.40) Hemoglobin 11.8 g/dL (12.0-15.5) Hematocrit 35.7 % (36.0-47.0) Mean Corpuscular Volume 81 fL (79-100) Mean Corpuscular Hemoglobin 27 pg (25-35) Mean Corpuscular Hemoglobin Concent 33 g/dL (31-37) Red Cell Distribution Width 14.7 % (11.5-14.5) Platelet Count 152 x10^3/uL (140-400) Sodium Level 141 mmol/L (136-145) Potassium Level 3.4 mmol/L (3.5-5.1) Chloride Level 103 mmol/L (98-107) Carbon Dioxide Level 29 mmol/L (21-32) Anion Gap 9 (6-14) Blood Urea Nitrogen 17 mg/dL (7-20) Creatinine 0.9 mg/dL (0.6-1.0) Estimated GFR (Cockcroft-Gault) 62.3 BUN/Creatinine Ratio 19 (6-20) Glucose Level 131 mg/dL (70-99) Calcium Level 8.9 mg/dL (8.5-10.1) Total Bilirubin 0.9 mg/dL (0.2-1.0) Aspartate Amino Transf (AST/SGOT) 22 U/L (15-37) Alanine Aminotransferase (ALT/SGPT) 37 U/L (14-59) Alkaline Phosphatase 50 U/L (46-116) BE-Noj-P-Type Natriuretic Peptide 2615 pg/mL (0-124) Total Protein 7.3 g/dL (6.4-8.2) Albumin 3.7 g/dL (3.4-5.0) Albumin/Globulin Ratio 1.0 (1.0-1.7) Microbiology 05/12/17 Blood Culture - Preliminary, Resulted NO GROWTH AFTER 1 DAY Medications Current Medications Aspirin (Children'S Aspirin) 324 mg 1X ONCE PO Last administered on 05/12/17 10:55; Start 05/12/17 at 10:30; Stop 05/12/17 at 10:35; Status DC Albuterol/ Ipratropium (Duoneb) 3 ml 1X ONCE NEB Last administered on 11:20; Start 05/12/17 at 11:15; Stop 05/12/17 at 11:16; Status DC Methylprednisolone Sodium Succinate (SOLU-Medrol 125MG VIAL) 125 mg 1X ONCE IV Last administered on 05/12/17 11:27; Start 05/12/17 at 11:15; Stop 05/12/17 at 11:16; Status DC Azithromycin 500 mg/Sodium Chloride 250 ml @ 250 mls/hr 1X ONCE IV Last administered on 05/12/17 11:45; Start 05/12/17 at 11:45; Stop 05/12/17 at 12:44 ; Status DC Sodium Chloride 250 ml @ As Directed STK-MED ONCE .ROUTE ; Start 05/12/17 at 11 :49; Stop 05/12/17 at 11:50; Status DC Azithromycin (Zithromax) 500 mg STK-MED ONCE IV ; Start 05/12/17 at 11:50; Stop 05/12/17 at 11:51; Status DC Ondansetron HCl (Zofran) 4 mg PRN Q4HRS PRN IV NAUSEA/VOMITING; Start 05/12/17 at 13:00; Stop 05/13/17 at 12:59; Status DC Acetaminophen (Tylenol) 650 mg PRN Q4HRS PRN PO FEVER Last administered on 05/12 18:50; Start 05/12/17 at 13:00; Stop 05/13/17 at 12:59; Status DC Albuterol/ Ipratropium (Duoneb) 3 ml RTQID NEB Last administered on 05/13/17 15:47; Start 05/12/17 at 16:00; Stop 05/13/17 at 15:59; Status DC Amitriptyline HCl (Elavil) 25 mg QHS PO Last administered on 05/13/17 21:22; Start 05/12/17 at 21:00 Levothyroxine Sodium (Synthroid) 112 mcg DAILY07 PO Last administered on 07:36; Start 05/13/17 at 07:00 Lisinopril (Prinivil) 10 mg DAILY PO Last administered on 05/14/17 08:18; Start 05/13/17 at 09:00 Sertraline HCl (Zoloft) 50 mg DAILY PO Last administered on 05/14/17 08:17; Start 05/13/17 at 09:00 Atorvastatin Calcium (Lipitor) 40 mg DAILY PO Last administered on 05/14/17 08 :17; Start 05/13/17 at 09:00 Cyclobenzaprine HCl (Flexeril) 5 mg TID PO Last administered on 05/14/17 08:17 ; Start 05/12/17 at 21:00 Fenofibrate (Tricor) 145 mg DAILY PO Last administered on 05/14/17 08:17; Start 05/13/17 at 09:00 Insulin Detemir (Levemir) 62 units BID SQ Last administered on 05/14/17 08:29 ; Start 05/12/17 at 21:00 Insulin Aspart (NovoLOG) 20 units TIDWMEALS SQ Last administered on 05/14/17 08:28; Start 05/12/17 at 18:00 Metformin HCl (Glucophage) 1,000 mg BIDWMEALS PO Last administered on 08:17; Start 05/12/17 at 18:00 Levofloxacin/ Dextrose 100 ml @ 100 mls/hr Q24H IV Last administered on 16:42; Start 05/12/17 at 18:00 Enoxaparin Sodium (Lovenox 60mg Syringe) 60 mg Q12HR SQ Last administered on 08:15; Start 05/12/17 at 21:00; Stop 05/13/17 at 15:26; Status DC Sodium Chloride 1,000 ml @ 1,000 mls/hr 1X ONCE IV Last administered on 17:30; Start 05/12/17 at 17:30; Stop 05/12/17 at 18:29; Status DC Sodium Chloride (Saline Mist Nasal) 1 t[place] PRN Q1HR PRN NS NASAL CONGESTION; Start 05/12/17 at 18:30 Acetaminophen (Tylenol) 650 mg PRN Q6HRS PRN PO PAIN / TEMP; Start 05/12/17 at 18:30 Diphenhydramine HCl (Benadryl) 25 mg PRN Q6HRS PRN PO ITCHING Last administered on 05/13/17 21:22; Start 05/12/17 at 18:30 Sodium Chloride 1,000 ml @ 1,000 mls/hr 1X ONCE IV Last administered on 18:00; Start 05/12/17 at 18:45; Stop 05/12/17 at 19:44; Status DC Sodium Chloride 1,000 ml @ 1,000 mls/hr 1X ONCE IV Last administered on 09:28; Start 05/13/17 at 09:15; Stop 05/13/17 at 10:14; Status DC Furosemide (Lasix) 20 mg 1X ONCE IVP Last administered on 05/13/17 13:03; Start 05/13/17 at 12:00; Stop 05/13/17 at 12:01; Status DC Enoxaparin Sodium (Lovenox) 40 mg Q24H SQ Last administered on 05/14/17 08:19 ; Start 05/14/17 at 09:00 Lactobacillus Acidophilus (Bacid, Leyda-Bid) 1 tab BID PO Last administered on 05/14/17 08:17; Start 05/13/17 at 21:00 Albuterol/ Ipratropium (Duoneb) 3 ml RTQID NEB Last administered on 05/14/17 09:44; Start 05/14/17 at 08:00 Albuterol/ Ipratropium (Duoneb) 3 ml STK-MED ONCE .ROUTE Last administered on 05/14/17t 05:45; Start 05/14/17 at 05:10; Stop 05/14/17 at 05:11; Status DC Active Scripts Active Reported Amitriptyline Hcl 25 Mg Tablet 1 Tab PO QHS Atorvastatin Calcium 40 Mg Tablet 1 Tab PO DAILY Metformin Hcl 1,000 Mg Tablet 1 Tab PO BID Zoloft (Sertraline Hcl) 50 Mg Tablet 1 Tab PO DAILY Humalog (Insulin Lispro) 100 Unit/1 Ml Cartridge 20 Unit SQ TID Levemir (Insulin Detemir) 100 Unit/1 Ml Vial 62 Unit SQ BID Lisinopril 10 Mg Tablet 1 Tab PO DAILY Fenofibrate (Fenofibrate,Micronized) 134 Mg Capsule 1 Cap PO DAILY Cyclobenzaprine Hcl 5 Mg Tablet 1 Tab PO TID Levothyroxine Sodium 112 Mcg Tablet 1 Tab PO DAILY Vitals/I & O Vital Sign - Last 24 Hours 05/13/17 05/13/17 05/13/17 05/13/17 11:00 15:38 15:47 19:00 Temp 98.4 98.4 Pulse 110 110 112 Resp 18 25 18 B/P (MAP) 105/55 (72) 131/53 (79) 136/53 (80) Pulse Ox 98 97 99 96 O2 Delivery Room Air Room Air Nasal Cannula Nasal Cannula O2 Flow Rate 2.0 2.0 05/13/17 05/13/17 05/13/17 05/14/17 20:00 21:05 23:00 03:00 Pulse 105 104 Resp 18 18 B/P (MAP) 129/66 (87) 132/61 (84) Pulse Ox 94 97 96 O2 Delivery Room Air Room Air Nasal Cannula Room Air 05/14/17 05/14/17 05/14/17 05:25 08:18 09:56 Pulse 104 B/P (MAP) 132/61 Pulse Ox 97 98 O2 Delivery Nasal Cannula Nasal Cannula O2 Flow Rate 2.0 2.0 Intake and Output 05/14/17 05/14/17 05/15/17 15:00 23:00 07:00 Intake Total 240 ml Balance 240 ml JAY MELVIN APRN May 14, 2017 10:20
[2017-05-14 10:41] LABS: CALCIUM 9.8 mg/dL (8.5-10.1); CREATININE 0.9 mg/dL (0.6-1.0); GFR 62.3; POTASSIUM 3.8 mmol/L (3.5-5.1)
[2017-05-14] MEDS: diphenhydrAMINE HCL 25 MG CAPSULE PO PRN (10:51)
[2017-05-14 11:00] VITALS: BP 113/52
[2017-05-14] MEDS ORDERED: FUROSEMIDE 40 MG/4 ML VIAL IVP ONE (11:00)
[2017-05-14 14:53] VITALS: BP 107/54
[2017-05-14] MEDS ORDERED: CARVEDILOL 3.125 MG TABLET PO SCH (17:00)
--- NOTE | 2017-05-14 22:45 | DS ---
DATE OF DISCHARGE: 05/14/2017 HOSPITAL COURSE: The patient is a 66-year-old female patient who was admitted to [facility] with chest pain and shortness of breath. She has been having recurrent episodes of orthopnea, paroxysmal nocturnal dyspnea that has been going on for a month and half now. She also has poorly controlled diabetes, for which she saw an tunnel mucker. Her insulin regimen has been changed recently. She was evaluated in the Emergency Room, apparently was diagnosed with bilateral lower lobe infiltrate versus edema. Her D-dimer was elevated and she did have lactic acidosis. She has had 3 sets of cardiac enzymes that were negative for myocardial infarction. Her beta natriuretic peptide was high at 2600 and she has had an echocardiogram done, which showed that her left ventricular systolic function is moderately impaired. Her ejection fraction is 30%, had mild mitral regurgitation, mild tricuspid regurgitation. Her pulmonary artery pressure was estimated at 42 mmHg. There is no evidence of any significant pericardial effusion and the nurse sane recommended cardiac catheterization, to which the patient has agreed and therefore, arrangement was made for her to be transferred to [facility] for cardiac catheterization tomorrow. PHYSICAL EXAMINATION: GENERAL: When I saw her today, she was sitting on the edge of the bed, in no apparent distress. On questioning her, she said she is feeling much, much better. She has had no further episodes of shortness of breath or paroxysmal nocturnal dyspnea. She has been up and about. When I examined her, she looked well and was clearly in no apparent respiratory distress, pale, no jaundice, cyanosis, or thyromegaly. No jugular venous distension. No limb edema. VITAL SIGNS: Her heart rate was 104, blood pressure 113/52, temperature was 97.9, respiratory rate was 20, and oxygen saturation was 97% on 2 liters of oxygen. HEAD, EYES, EARS, NOSE AND THROAT: Showed normocephalic, atraumatic. NECK: Supple. HEART: Showed normal first and second heart sounds with no gallop, rub or murmur. CHEST: Clear to auscultation. No crepitation or rhonchi. ABDOMEN: Distended, soft, nontender. NEUROLOGIC: She was awake, alert, responding appropriately. Cranial nerves intact. She moves extremities without difficulty. She ambulates without assistance or assistive devices. Her intake was 2245. Output was 5350. LABORATORY DATA: As of this morning showed a white cell count 5800, hemoglobin 11.8, hematocrit 35.7, MCV 81 and platelet count of 152,000. Her chemistry showed a serum sodium 140, potassium 3.8, chloride 103, bicarbonate 28, anion gap of 9, BUN 17, creatinine 0.9, estimated GFR was 62 mL per minute. Her glucose was 80, calcium was 9.8, magnesium 2. Her D-dimer was elevated at 0.86. Urinalysis was unremarkable and toxic screen was negative. She did have lung ventilation perfusion scan, which showed no ventilatory defect or significant air trapping seen, normal physiologic perfusion is seen and normal V/Q lung scan, she has 3 sets of cardiac enzymes that ruled out myocardial infarction. DISCHARGE MEDICATIONS: The patient was discharged on following medications, amitriptyline 25 mg once a day, atorvastatin, calcium 40 mg at bedtime, cyclobenzaprine 5 mg 3 times a day, fenofibrate 134 mg once a day, Levemir insulin 62 units twice a day, lispro Humalog insulin 20 units 3 times a day, levothyroxine sodium 112 mcg once a day, lisinopril 10 mg once a day, metformin 1000 mg twice a day, sertraline for Zoloft 50 mg at bedtime. FINAL DISCHARGE DIAGNOSES: 1. Acute systolic heart failure with ejection fraction of 30%, responded well to Lasix. She is on DIANE inhibitors and beta blockers. 2. Chest pain. Cardiac enzymes were negative. EKG showed no acute ischemic changes. Her ejection fraction is decreased. 3. Hypertension, well controlled. 4. Hyperlipidemia for which she is on Lipitor. 5. Type 2 diabetes mellitus for which she is on metformin and NovoLog and Levemir insulin. I will hold the metformin as she is scheduled for cardiac catheterization tomorrow. OTF DRUMMOND MD DR: NATALIE/praful JOB#: [id number] / [id number]
== END 2017-05-14 15:01 | disposition short-term general hospital (02) | DRG 871 ==
LOC: ER 10:07 → ICU 13:01 → 1 SOUTH 05-14 05:25
PROVIDERS: ADMIT Internal Medicine; ATTEND Internal Medicine
DX: A41.9 Sepsis, unspecified organism (principal); J18.9 Pneumonia, unspecified organism; I50.21 Acute systolic (congestive) heart failure; E11.649 Type 2 diabetes mellitus with hypoglycemia without coma; E87.2 Acidosis; I11.0 Hypertensive heart disease with heart failure; E11.65 Type 2 diabetes mellitus with hyperglycemia; E03.9 Hypothyroidism, unspecified; E78.5 Hyperlipidemia, unspecified; I08.1 Rheumatic disorders of both mitral and tricuspid valves; L40.9 Psoriasis, unspecified; M19.90 Unspecified osteoarthritis, unspecified site; R07.9 Chest pain, unspecified; Z87.891 Personal history of nicotine dependence; Z80.1 Family history of malignant neoplasm of trachea, bronchus and lung; Z82.49 Family history of ischemic heart disease and other diseases of the circulatory system; Z90.710 Acquired absence of both cervix and uterus; Z79.4 Long term (current) use of insulin; Z88.0 Allergy status to penicillin; Z88.2 Allergy status to sulfonamides; Z91.041 Radiographic dye allergy status; Z81.1 Family history of alcohol abuse and dependence; Z90.721 Acquired absence of ovaries, unilateral
CPT/HCPCS: 36415; 36600; 71020; 74022; 78582; 80048; 80053; 80061; 80307; 81001; 82550; 82803; 82947; 83605; 83690; 83735; 83880; 84443; 84484; 85025; 85027; 85379; 87040; 87641; 93005; 93306; 94640; 94760; 96374; 96375; A9540; A9558; J0456; J1650; J1815; J1940; J1956; J2930; J7050; J7620; Q0163; 99285-25; G0479; J7030

== ENCOUNTER → 2017-07-01 | Outpatient (CLI) | payer MEDICARE ==
[~2017-07-01] MED LIST: AMIT25TA PO; ATOR40TA59 PO; CYCL5TAB PO; FENO134C PO; INSU100C SQ; INSU100V13 SQ; LEVO112T4 PO; LISI10TA2 PO; METF10002 PO; SERT50TA PO
--- NOTE | 2017-07-01 11:49 | CARD ---
MR#: [id number] Date of Study: 07/01/2017 Ordering Physician: NILE LOERA, Referring Physician: NILE LOERA, Tech: Beth Mendez [facility] APPROVED REPORT EXAM: Two-dimensional and M-mode echocardiogram with Doppler and color Doppler. INDICATION Congestive Heart Failure 2D DIMENSIONS Left Atrium(2D)3.7 (1.6-4.0cm)IVSd1.2 (0.7-1.1cm) Aortic Root(2D)3.1 (2.0-3.7cm)LVDd5.3 (3.9-5.9cm) LVOT Diameter2.0 (1.8-2.4cm)PWd1.2 (0.7-1.1cm) LVDs4.7 (2.5-4.0cm)FS (%) 12.1 % SV35.0 mlLVEF(%)25.9 (>50%) Aortic Valve AoV Peak Davy.109.5cm/sAoV VTI22.5cm AO Peak GR.4.8mmHgLVOT Peak Davy.78.2cm/s LVOT VTI 16.40cmAO Mean GR.3mmHg RYDER (VMAX)2.44sh5HHC (VTI)2.27cm2 Mitral Valve MV E Sukqsfix53.4cm/sMV DECEL [id number] MV A Byyhjmej202.0cm/sE/A Ratio0.8 Tricuspid Valve TR P. Nxvwhdty381im/sRAP [id number] TR Peak Gr.[id number] LEFT VENTRICLE The Left Ventricle is moderately dilated. There is mild concentric left ventricular hypertrophy. Left ventricle systolic function is severely impaired. The Ejection Fraction is 25%. There is severe glob al hypokinesis of the left ventricle. Transmitral Doppler flow pattern is Grade I-abnormal relaxation pattern. RIGHT VENTRICLE The right ventricle is normal size. The right ventricular systolic function is normal. ATRIA The left atrium size is normal. The right atrium size is normal. The interatrial septum is intact wit h no evidence for an atrial septal defect or patent foramen ovale as noted on 2-D or Doppler imaging. AORTIC VALVE The aortic valve is mildly calcified but opens well. Doppler and Color Flow revealed no significant a ortic regurgitation. There is no significant aortic valvular stenosis. MITRAL VALVE The mitral valve is calcified but opens well. There is no evidence of mitral valve prolapse. There is no mitral valve stenosis. Doppler and Color-flow revealed mild mitral regurgitation. TRICUSPID VALVE The tricuspid valve is normal in structure and function. Doppler and Color Flow revealed mild tricusp id regurgitation. There is no pulmonary hypertension. The PA pressure was estimated at 23 mmHg. There is no tricuspid valve prolapse or vegetation. There is no tricuspid valve stenosis. PULMONIC VALVE Doppler and Color Flow revealed no pulmonic valvular regurgitation. There is no pulmonic valvular carlos nosis. GREAT VESSELS The aortic root is normal in size. The ascending aorta is normal in size. The IVC is normal in size a nd collapses >50% with inspiration. PERICARDIAL EFFUSION There is no pleural effusion. There is no evidence of significant pericardial effusion. Critical Notification Critical Value: No <Conclusion> Left ventricle systolic function is severely impaired. The Ejection Fraction is 25%. There is severe global hypokinesis of the left ventricle. Signed by : Nile Loera, Electronically Approved : 07/01/2017 11:49:17
== END | disposition home or self-care (01) ==
LOC: ECHO 08:45
PROVIDERS: ATTEND Internal Medicine Cardiovascular Disease
DX: I11.0 Hypertensive heart disease with heart failure (principal); I08.1 Rheumatic disorders of both mitral and tricuspid valves; E11.65 Type 2 diabetes mellitus with hyperglycemia; Z79.4 Long term (current) use of insulin; Z87.891 Personal history of nicotine dependence
CPT/HCPCS: 93306

== ENCOUNTER → 2017-10-07 | Outpatient (CLI) | payer MEDICARE ==
--- NOTE | 2017-10-08 08:33 | RAD ---
Radionuclide MUGA scan, 10/07/2017: History: Cardiomyopathy The study was performed utilizing 25 mCi of technetium 99m and a labeled red blood cell technique. The left ventricular ejection fraction was calculated at 31.8%. There is generalized left ventricular hypokinesis with no focal dyskinetic segment seen. IMPRESSION: Moderately decreased left ventricular ejection fraction of 31.8%.
== END | disposition home or self-care (01) ==
LOC: NM 09:59
PROVIDERS: ATTEND Internal Medicine Cardiovascular Disease
DX: I42.9 Cardiomyopathy, unspecified (principal); I11.0 Hypertensive heart disease with heart failure; I50.21 Acute systolic (congestive) heart failure; E11.649 Type 2 diabetes mellitus with hypoglycemia without coma; E78.5 Hyperlipidemia, unspecified; E03.9 Hypothyroidism, unspecified
CPT/HCPCS: 78472; A9560

== ENCOUNTER → 2018-06-24 | Outpatient (CLI) | payer MEDICARE ==
[~2018-06-24] MED LIST changes: -METF10002 PO; +METF10007 PO
[2018-06-24 12:49] LABS: ALBUMIN 3.6 g/dL (3.4-5.0); ALBUMIN/GLOBULIN RATIO 0.9 (1.0-1.7); CALCIUM 9.1 mg/dL (8.5-10.1); CREATININE 0.8 mg/dL (0.6-1.0); GFR 71.1; POTASSIUM 4.6 mmol/L (3.5-5.1); TOTAL BILIRUBIN 0.3 mg/dL (0.2-1.0); TOTAL PROTEIN 7.5 g/dL (6.4-8.2)
--- NOTE | 2018-06-25 13:30 | RAD ---
MR#: [id number] Date of Study: 06/24/2018 Ordering Physician: NILE LOERA, Referring Physician: NILE LOERA, Tech: Bettina Abdullahi, HANS, RVT, RTR APPROVED REPORT Lower Extremity Venous Study for DVT Patient Location: OUT-PATIENT Indications Agrawal scale images of the left common femoral, superficial femoral, popliteal veins reveal full compre ssibility without evidence of DVT. Normal flow on color doppler is noted. Below knee veins were not w ell visualized but appear to demonstrate spontaneous flow. The CFV is negative for DVT. Incidental left sided inguinal lymph nodes noted, likely reactive in nature. Critical Notification Critical Value: No <Conclusion> 1. Negative for DVT in the LLE. Signed by : Nile Loera, Electronically Approved : 06/25/2018 13:28:59
== END | disposition home or self-care (01) ==
LOC: US 11:04
PROVIDERS: ATTEND Internal Medicine Cardiovascular Disease
DX: R60.0 Localized edema (principal); I10 Essential (primary) hypertension
CPT/HCPCS: 36415; 80053; 80061; 83880; 93971

== ENCOUNTER → 2018-10-12 | Outpatient (CLI) | payer OTHER ==
--- NOTE | 2018-10-12 15:17 | RAD ---
MR#: [id number] Date of Study: 10/12/2018 Ordering Physician: NILE WEEKS, Referring Physician: NILE WEEKS, Tech: Luh Steiner RVT, [facility] APPROVED REPORT Patient Location: OUT-PATIENT Indications Wounds on feet Risk Factors Grayscale images of the bilateral lower extremity arterial vessels reveals mild to moderate diffuse a therosclerotic plaque. Spectral waveforms and color Doppler of the bilateral lower extremities reveal ed three-vessel patency below the knee and mostly biphasic and monophasic waveforms throughout the ar terial course likely suggestive of loss of arterial elasticity rather than any significant high-grade flow-limiting stenosis based on velocity criteria. VELOCITY AND DOPPLER WAVEFORM ANALYSIS RIGHT cm/secWaveformSeverity LEFT cm/secWaveform Severity pCFA 136.5pCFA 170.6 Fem Art Prox. 154.7Fem Art Prox. 179.3 Fem Art Mid. 158.1Fem Art Mid. 160.5 Fem Art Dist. 138.8Fem Art Dist. 136.3 Pop Art(Fossa) 95.7Pop Art(AK) 127.3 OCCUPATIONAL THERAPY TECHNICIAN Prox. 122.0PTA Prox. 136.3 OCCUPATIONAL THERAPY TECHNICIAN Dist. 137.5PTA Dist. 135.0 Per Art Prox. 73.6Per Art Prox. 67.6 TISHA Prox. 96.3ATA Prox. 74.4 DPA 68DPA 57 Critical Notification Critical Value: No <Conclusion> No significant bilateral occlusive disease. Three-vessel runoff below the knees bilaterally. Signed by : Nile Weeks, Electronically Approved : 10/12/2018 15:17:02
== END | disposition home or self-care (01) ==
LOC: US 12:44
PROVIDERS: ATTEND Internal Medicine Cardiovascular Disease
DX: S91.309A Unspecified open wound, unspecified foot, initial encounter (principal); I70.203 Unspecified atherosclerosis of native arteries of extremities, bilateral legs; X58.XXXA Exposure to other specified factors, initial encounter; Y93.89 Activity, other specified; Y92.89 Other specified places as the place of occurrence of the external cause; Y99.8 Other external cause status; Z87.891 Personal history of nicotine dependence
CPT/HCPCS: 93925

== ENCOUNTER 2019-08-14 18:28 | Observation (INO) | payer MEDICARE, OTHER ==
[~2019-08-14] VITALS: Ht 160 cm; Wt 65.9 kg
--- NOTE | 2019-08-14 18:31 | PHYS DOC ---
Past History Past Medical History: Anxiety, Diabetes, High Cholesterol, Hypertension, Hypothyroid Past Surgical History: Hysterectomy, Other Alcohol Use: None Drug Use: None Adult General Chief Complaint Chief Complaint: ".. I ve had a lot of problems control of my blood sugars.. just not feeling right.. " " I have sugars up.. and down.. for months don't feel right... and the last 4 - 5 days. I am so weak.. nausea.. ill feeling... . I see Lety.. but.. HPI HPI Patient is a 68 year old female who presents with above hx and complaints malaise, weakness, hyperglycemia. Patient normally follows with Dr. Davidson. No hx of flu vaccination. Some recent changes in meds. No changes in diet. Pt. Review of Systems Review of Systems Constitutional: Subjective complaints of fever Eyes: Denies change in visual acuity, redness, or eye pain [] HENT: Denies nasal congestion or sore throat [] Respiratory: Complaints of dyspnea] Cardiovascular: No additional information not addressed in HPI [] GI: Plaints of nausea,. Patient denies vomiting, bloody stools or diarrhea [] : Denies dysuria or hematuria [] Musculoskeletal: Denies back pain or joint pain []Complaints of generalized weakness. Integument: Denies rash or skin lesions [] Neurologic: Denies headache, focal weakness or sensory changes [] Endocrine: History family of polyuria . All other systems were reviewed and found to be within normal limits, except as documented in this note. Family History Family History Noncontributory to presentation Current Medications Current Medications See nursing for home meds Allergies Allergies Allergies Coded Allergies Type Severity Reaction Last Updated Verified Penicillins Allergy Intermediate 05/13/17 Yes Sulfa (Sulfonamide Antibiotics) Allergy Intermediate 05/13/17 Yes iohexol Allergy Intermediate CONTRAST MEDIA 05/12/17 Yes Physical Exam Physical Exam Constitutional: Moderate acute distress, non-toxic appearance. [] HENT: Normocephalic, atraumatic, bilateral external ears normal, oropharynx dry, no oral exudates, nose normal. [] Eyes: PERRLA, EOMI, conjunctiva normal, no discharge. [] Neck: Normal range of motion, no tenderness, supple, no stridor. [] Cardiovascular: Tachycardia Heart rate regular rhythm, no murmur [] Lungs & Thorax: Bilateral breath sounds with apex scattered wheezes on auscultation [] Abdomen: Bowel sounds normal, soft, no tenderness, no masses, no pulsatile masses. [] Old surgery scars. Skin: Warm, dry, no erythema, no rash. [] Poor turgor Back: No tenderness, no CVA tenderness. [] Extremities: No tenderness, no cyanosis, no clubbing, ROM intact, no edema. [] Arthritic changes. No cording appreciated. Neurologic: Alert and oriented X 3, moves ext. on request, has distal sensory., no focal deficits noted. [] Psychologic: Affect anxious, judgement normal, mood normal. [] EKG EKG My interpretation of EKG shows a sinus rhythm at 97 bpm. Bimodal P-wave's. Anterior septal changes. Strain pattern.[] Radiology/Procedures Radiology/Procedures [][address] [address] IMAGING REPORT Signed PATIENT: YARELI ODEN JACCOUNT: [id number] : 1950 LOCATION: ER AGE: 68 SEX: F EXAM STATUS: REG ER ORD. PHYSICIAN: RAFAELA HOSKINS MD REASON: high glucose cough PROCEDURE: PORTABLE CHEST 1V EXAM: PORTABLE CHEST 1V INDICATION: High glucose and cough.. TECHNIQUE: Single view COMPARISON: Chest x-ray of 05/13/2017 FINDINGS: Interval placement of a right chest dual-chamber AICD. Stable surgical clips in the left upper chest/axilla. The heart size is normal. The great vessels appear unremarkable. There is no hilar or mediastinal mass. The lungs are clear. There is no pleural effusion or pneumothorax. There are no significant osseous abnormalities. IMPRESSION: No active cardiopulmonary disease. Electronically signed by: Brigid Handley MD (08/14/2019 7:44 PM) [facility] DICTATED AND SIGNED BY: BRIGID HANDLEY MD DATE: 08/14/191943 CC: RAFAELA HOSKINS MD; KOKO DAVIDSON DO ~ Course & Med Decision Making Course & Med Decision Making Pertinent Labs and Imaging studies reviewed. (See chart for details) Admitted to Dr. Montelongo for further eval. and tx. Impression: 1. Viral Syndrome + Influ B 2. Dehydration 3. DM with Hyperglycemia 346 4. Elevated AST/ALT 48/84 5. Thrombocytopenia 111 6. Accelerated HTN 7. Weakness [] Dragon Disclaimer Dragon Disclaimer This electronic medical record was generated, in whole or in part, using a voice recognition dictation system. Departure Departure: Disposition: HOME/RESIDENCE PRIOR TO ADM Condition: STABLE Referrals: KOKO DAVIDSON DO (PCP) Raul Disclaimer This chart was dictated in whole or in part using Voice Recognition software in a busy, high-work load, and often noisy Emergency Department environment. It may contain unintended and wholly unrecognized errors or omissions. Dragon Disclaimer This chart was dictated in whole or in part using Voice Recognition software in a busy, high-work load, and often noisy Emergency Department environment. It may contain unintended and wholly unrecognized errors or omissions. RAFAELA HOSKINS MD Aug 14, 2019 18:31
[2019-08-14] MEDS ORDERED: IV NORMAL SALINE 1,000ML 1,000 ML IV SCH (18:32)
[2019-08-14 19:19] LABS: BASO % 1 % (0-3); EOS % 1 % (0-3); HEMATOCRIT 41.4 % (36.0-47.0); HEMOGLOBIN 13.8 g/dL (12.0-15.5); LYMPH # 0.5 x10^3/uL (1.0-4.8); LYMPH % 12 % (24-48); MEAN CORPUSCULAR HEMOGLOBIN 28 pg (25-35); MEAN CORPUSCULAR HGB CONC 33 g/dL (31-37); MEAN CORPUSCULAR VOLUME 84 fL (79-100); MONO # 0.3 x10^3/uL (0.0-1.1); MONO % 7 % (0-9); NEUT # 3.2 x10^3uL (1.8-7.7); NEUT % 80 % (31-73); PLATELET COUNT 111 x10^3/uL (140-400); RED BLOOD COUNT 4.92 x10^6/uL (3.50-5.40); RED CELL DISTRIBUTION WIDTH 14.9 % (11.5-14.5)
[2019-08-14] MEDS ORDERED: triglide PO (19:23)
[2019-08-14] MEDS ORDERED: METO-247 PO (19:31)
[2019-08-14] MEDS ORDERED: FURO20TA3 PO (19:31)
[2019-08-14] MEDS ORDERED: INSU100I13 SQ (19:31)
[2019-08-14] MEDS ORDERED: LOSA25TA11 PO (19:31)
[2019-08-14] MEDS ORDERED: PRAV40TA2 PO (19:31)
[2019-08-14] MEDS ORDERED: CEPH500C PO (19:31)
[2019-08-14 19:38] LABS: CALCIUM 8.2 mg/dL (8.5-10.1); CREATININE 0.9 mg/dL (0.6-1.0); GFR 61.9; POTASSIUM 4.4 mmol/L (3.5-5.1)
[2019-08-14 19:43] LABS: INFLUENZA A PATIENT NEGATIVE (NEGATIVE); INFLUENZA B PATIENT POSITIVE (NEGATIVE)
--- NOTE | 2019-08-14 19:47 | RAD ---
EXAM: PORTABLE CHEST 1V INDICATION: High glucose and cough.. TECHNIQUE: Single view COMPARISON: Chest x-ray of 05/13/2017 FINDINGS: Interval placement of a right chest dual-chamber AICD. Stable surgical clips in the left upper chest/axilla. The heart size is normal. The great vessels appear unremarkable. There is no hilar or mediastinal mass. The lungs are clear. There is no pleural effusion or pneumothorax. There are no significant osseous abnormalities. IMPRESSION: No active cardiopulmonary disease. Electronically signed by: Tereza Handley MD (08/14/2019 7:44 PM) [facility]
[2019-08-14 19:50] LABS: ALBUMIN 4.1 g/dL (3.4-5.0); DIRECT BILIRUBIN 0.1 mg/dL (0.0-0.2); MAGNESIUM 2.2 mg/dL (1.8-2.4); TOTAL BILIRUBIN 0.5 mg/dL (0.2-1.0); TOTAL PROTEIN 7.1 g/dL (6.4-8.2)
[2019-08-14 20:45] LABS: BACTERIA,URINE 0 /HPF (0-FEW); BILIRUBIN,URINE NEG (NEG); CLARITY,URINE CLEAR; COLOR,URINE YELLOW; GLUCOSE,URINE NEG (NEG); NITRITE,URINE NEG (NEG); RBC,URINE OCC /HPF (0-2); SQUAMOUS EPITHELIAL CELL,UR OCC /LPF; UROBILINOGEN,URINE 0.2 mg/dL (0.2 mg/dL); WBC,URINE OCC /HPF (0-4)
[2019-08-14] MEDS ORDERED: ONDANSETRON PF 4 MG/2 ML VIAL. IV PRN (21:30)
[2019-08-14] MEDS ORDERED: ACETAMINOPHEN 325 MG TABLET PO PRN (21:30)
[2019-08-14 22:15] VITALS: BP 165/78
[2019-08-14] MEDS: IV RINGERS SOLUTION,LACTATED 1,000 ML IV SCH (22:22)
[2019-08-15] MEDS: IV RINGERS SOLUTION,LACTATED 1,000 ML IV SCH ×2 (04:21→08:39)
[2019-08-15 06:04] VITALS: BP 135/67
[2019-08-15] MEDS ORDERED: INSULIN LISPRO 300 UNITS/3 ML VIAL. SQ SCH ×2 (12:00→17:00)
--- NOTE | 2019-08-15 12:06 | EKG ---
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
[2019-08-15 12:16] VITALS: BP 148/66
--- NOTE | 2019-08-15 12:41 | HP ---
ADMIT DATE: 08/14/2019 HISTORY OF PRESENT ILLNESS: The patient is a 68-year-old female patient who came to the Emergency Room with a complaint of poorly controlled blood sugar; has also some generalized weakness, nausea, ill-feeling and she also had stuffy nose, headache, generalized malaise. There was no change in her medication or diet. She was evaluated in the Emergency Room, and her lab work showed that her blood sugar was slightly elevated and her influenza A was negative, B was positive. Her chest x-ray showed that the heart size is normal. The ____ appears unremarkable. There is no hilar or mediastinal mass. The lungs are clear. There is no pleural effusion or pneumothorax. There are no significant ST abnormalities. The patient was admitted with flu as well as poorly controlled diabetes, generalized weakness. She was given a liter of fluid, and continued on Tylenol as well as lactated Ringer's. PAST MEDICAL HISTORY: Significant for type 2 diabetes mellitus, hypertension, hyperlipidemia, hypothyroidism, generalized osteoarthritis, psoriasis. She apparently had an episode of empyema of the left side of the chest and right shoulder septic arthritis. PAST SURGICAL HISTORY: Significant for appendectomy, total abdominal hysterectomy, bilateral salpingo-oophorectomy, empyema drainage of the left chest, drainage of the right shoulder joint. She also has had esophagogastroduodenoscopy and colonoscopy. ALLERGIES: She is allergic to PENICILLIN, SULFA DRUGS and CONTRAST DYE. FAMILY HISTORY: She has 2 sisters, 1 older who does not keep in touch and 1 younger who seems healthy and apparently has had bone marrow transplant for bone cancer according to her. Her father in his early 70s because of alcoholism. Mother in her early 70s because of lung cancer. SOCIAL HISTORY: She is , has 3 sons and 1 daughter. She is an ex-smoker, quit smoking in the . She used to smoke a pack a day. She said that she practically has smoked all her life as a secondhand smoker. She does not drink alcohol or use recreational drugs. 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 MEDICATIONS: She is currently on following medications. She is on cyclobenzaprine 5 mg 3 times a day, pravastatin sodium 40 mg at bedtime, metoprolol succinate 100 mg daily, losartan potassium 50 mg once a day, sertraline 50 mg once a day, furosemide 20 mg daily. She is on Lantus insulin 80 units twice a day and she is on Humalog insulin 20 units 3 times a day before meals, levothyroxine sodium 112 mcg once a day and Triglide 160 mg once a day. REVIEW OF SYSTEMS: As per history of present illness. PHYSICAL EXAMINATION: GENERAL: On arrival to the Emergency Room, the patient looked somewhat unwell, but there was no pallor, jaundice, cyanosis or thyromegaly. No jugular venous distention. No limb edema. VITAL SIGNS: Her heart rate was 97, blood pressure was 157/77, temperature was 98.1, respiratory rate was 16 and oxygen saturation was 99%. HEAD, EYES, EARS, NOSE AND THROAT: Showed normocephalic, atraumatic. NECK: Supple. HEART: Showed normal first and second heart sounds. No gallop, rub or murmur. CHEST: Clear to auscultation. No crepitation or rhonchi. ABDOMEN: Distended, soft, nontender. NEUROLOGIC: She was somewhat slow to respond, but all her cranial nerves were intact. EXTREMITIES: She moves extremities without difficulty. LABORATORY DATA: Her lab work on arrival showed white cell count 4000, hemoglobin 13.8, hematocrit 41, MCV 84 and platelet count of 111,000, where the manual differential showed 80% neutrophils, 12% lymphocytes. Her chemistry showed serum sodium 138, potassium 4.4, chloride 99, bicarbonate 27, anion gap of 12, BUN 20, creatinine 0.9. Estimated GFR was 61 mL per minute. Her glucose was 346, calcium was 8.2, magnesium 2.2. Total bilirubin, AST, ALT were slightly elevated. Her alkaline phosphatase was normal. Her CK was 95, beta-natriuretic peptide was 175. Total protein 7.1, albumin was 4.1. Her prothrombin time, INR and aPTT are all normal. Urinalysis showed the urine was yellow, clear with a pH of 7, specific gravity of 1.015. The urine was negative for protein, glucose, ketones, blood, nitrite and leukocyte esterase. There are no rbc's, occasional wbc's and no bacteria. Her influenza B was positive. ASSESSMENT: The patient was admitted with: 1. Influenza B. 2. Poorly controlled type 2 diabetes mellitus. 3. Dehydration. PLAN: The patient has received a liter of fluid in the Emergency Room and continued on lactated ringer solution. I will probably hold her Lasix for now, continue with all other medication, and monitor her labs and response to treatment. OTF DRUMMOND MD DR: NATALIE/praful JOB#: [id number] / [id number]
[2019-08-15] MEDS ORDERED: CYCLOBENZAPRINE 10 MG TABLET. PO SCH (14:00)
[2019-08-15 15:15] VITALS: BP 197/95
[2019-08-15] MEDS ORDERED: CEPHALEXIN 250 MG CAPSULE PO SCH ×2 (15:30→21:00)
[2019-08-15 16:43] LABS: HDLC 20 mg/dL (40-60); THYROID STIM HORMONE (TSH) 3.026 uIU/mL (0.358-3.740); TRIGLYCERIDES 614 mg/dL (0-150); VLDLC 122 mg/dL (0-40)
[2019-08-15] MEDS ORDERED: ATORVASTATIN CALCIUM 10 MG TABLET. PO SCH (21:00)
[2019-08-15] MEDS ORDERED: LACTOBACILLUS RHAMNOSUS GG 1 CAPSULE. PO SCH (21:00)
[2019-08-15] MEDS ORDERED: OSELTAMIVIR 30 MG CAPSULE PO SCH (21:00)
[2019-08-15] MEDS ORDERED: INSULIN GLARGINE SYRINGE. SQ SCH (21:00)
[2019-08-16] MEDS ORDERED: LEVOTHYROXINE 112 MCG TABLET PO SCH (06:00)
[2019-08-16] MEDS ORDERED: SERTRALINE 50 MG TABLET. PO SCH (09:00)
[2019-08-16] MEDS ORDERED: LOSARTAN 50 MG TABLET. PO SCH (09:00)
[2019-08-16] MEDS ORDERED: METOPROLOL SUCC 24HR ER 50 MG TAB.ER.24H. PO SCH (09:00)
[2019-08-16] MEDS ORDERED: FENOFIBRATE NANOCRYSTALLIZED 145 MG TABLET PO SCH (09:00)
== END 2019-08-15 15:55 | disposition left against medical advice (07) ==
LOC: ER 18:28 → 1 SOUTH 22:03 → INTOOBSV 22:03
PROVIDERS: ADMIT Internal Medicine; ATTEND Internal Medicine
DX: E11.65 Type 2 diabetes mellitus with hyperglycemia (principal); J09.X2 Influenza due to identified novel influenza A virus with other respiratory manifestations; E86.0 Dehydration; R53.1 Weakness; I10 Essential (primary) hypertension; E78.5 Hyperlipidemia, unspecified; D69.6 Thrombocytopenia, unspecified; E03.9 Hypothyroidism, unspecified; M15.9 Polyosteoarthritis, unspecified; R74.0 Nonspecific elevation of levels of transaminase and lactic acid dehydrogenase [LDH]; Z88.0 Allergy status to penicillin; Z87.891 Personal history of nicotine dependence; Z79.4 Long term (current) use of insulin; Z79.899 Other long term (current) drug therapy; Z90.710 Acquired absence of both cervix and uterus; Z77.22 Contact with and (suspected) exposure to environmental tobacco smoke (acute) (chronic)
CPT/HCPCS: 36415; 71045; 80048; 80061; 80076; 81001; 82550; 82947; 83690; 83735; 83880; 84443; 84484; 85025; 85610; 85730; 86705; 86709; 86803; 87340; 87804; 93005; 96360; 96361; 96372; 99284; G0378; J1815; J7120; 99285; G0379; J7030

== ENCOUNTER → 2020-03-06 | Outpatient (CLI) | payer MEDICARE ==
[~2020-03-06] MED LIST changes: +CEPH500C PO; +FURO20TA3 PO; +INSU100I13 SQ; +LOSA25TA11 PO; +METO-247 PO; +PRAV40TA2 PO; +triglide PO
--- NOTE | 2020-03-06 19:52 | RAD ---
Right foot 3 views: Reason for examination: Nonhealing wounds. No acute fracture or dislocation is seen. The bone density is normal. No abnormal periosteal reaction is seen. There does appear to be fusion at the fifth metatarsophalangeal joint. Remaining joint spaces are maintained. No erosive changes are seen. IMPRESSION: No acute bony abnormality at the right foot. Electronically signed by: Shazia Chavis MD (03/06/2020 7:50 PM) [facility]
--- NOTE | 2020-03-07 08:21 | RAD ---
Ankle-brachial indices and bilateral lower extremity arterial duplex ultrasound. 03/06/2020 INDICATION: Nonhealing foot wounds. COMPARISON STUDY: None Discussion: Blood pressure measurements were obtained of the ankles and arms bilaterally. Right brachial pressure: 116 mmHg Left brachial pressure: 112 mmHg Right posterior tibial pressure: 136 mmHg Left posterior tibial pressure 146 mmHg Right dorsalis pedis pressure: 146 mm 3 Left dorsalis pedis pressure: 144 mmHg Right ankle brachial index: 1.3 Left ankle-brachial index: 1.3 Ultrasound evaluation of the major arteries of the bilateral lower extremities was also performed including color Doppler imaging spectral analysis. Is mild diffuse atherosclerotic vascular calcification. No major arterial occlusion or aneurysm is seen. No focal elevation in velocity suggestive of 50% or greater stenosis is identified. Waveform morphology is felt to be within normal limits. IMPRESSION: 1. Mild elevation in the ankle-brachial index bilaterally which most commonly reflects some degree of vessel hardening secondary to atherosclerotic vascular disease 2. Diffuse changes of atherosclerotic vascular disease are seen on ultrasound evaluation without focal major arterial occlusion or sonographic evidence of focal hemodynamically significant stenosis Electronically signed by: Parminder Trujillo MD (03/07/2020 8:19 AM) [id number]
== END | disposition home or self-care (01) ==
LOC: US 12:49
PROVIDERS: ATTEND Emergency Medicine Undersea and Hyperbaric Medicine
DX: I70.203 Unspecified atherosclerosis of native arteries of extremities, bilateral legs (principal); T81.89XA Other complications of procedures, not elsewhere classified, initial encounter; E11.9 Type 2 diabetes mellitus without complications; M24.671 Ankylosis, right ankle
CPT/HCPCS: 73630; 93922; 93925

== ENCOUNTER → 2020-04-18 | Outpatient (CLI) | payer MEDICARE ==
[2020-04-18 10:53] LABS: ALBUMIN 4.3 g/dL (3.4-5.0); ALBUMIN/GLOBULIN RATIO 1.1 (1.0-1.7); CALCIUM 9.6 mg/dL (8.5-10.1); GFR 54.7; POTASSIUM 4.3 mmol/L (3.5-5.1); TOTAL BILIRUBIN 0.4 mg/dL (0.2-1.0); TOTAL PROTEIN 8.1 g/dL (6.4-8.2)
--- NOTE | 2020-04-18 17:29 | CARD ---
MR#: [id number] Date of Study: 04/18/2020 Ordering Physician: NILE LOERA, Referring Physician: NILE LOERA, Tech: Amy Swanson LEANDRO APPROVED REPORT EXAM: Two-dimensional and M-mode echocardiogram with Doppler and color Doppler. Other Information Quality : Good INDICATION Non-Ischemic Cardiomyopathy Surgery/Intervention ICD/Pacemaker: Date: 2016 2D DIMENSIONS RVDd2.6 (2.9-3.5cm)Left Atrium(2D)2.7 (1.6-4.0cm) IVSd0.9 (0.7-1.1cm)Aortic Root(2D)3.1 (2.0-3.7cm) LVDd4.4 (3.9-5.9cm)PWd0.9 (0.7-1.1cm) LVDs3.6 (2.5-4.0cm)FS (%) 18.9 % SV34.7 ml Aortic Valve AoV Peak Davy.107.3cm/sAoV VTI20.9cm AO Peak GR.4.6mmHgAO Mean GR.3mmHg RYDER (VTI)2.02cm2 Mitral Valve MV E Jffqhgkr23.8cm/sMV DECEL [id number] MV A Igfefckh594.3cm/sE/A Ratio0.6 LEFT VENTRICLE The left ventricle is normal size. There is normal left ventricular wall thickness. Left ventricle sy stolic function is moderately impaired. The Ejection Fraction is 35-40%. There is global hypokinesis of the left ventricle. Apical motion consistent with pacemaker activation. Transmitral Doppler flow p attern is Grade I-abnormal relaxation pattern. RIGHT VENTRICLE The right ventricle is normal size. The right ventricular systolic function is normal. There are lamont ce leads in the right ventricle and atrium. ATRIA The left atrium size is normal. The right atrium size is normal. The interatrial septum is intact wit h no evidence for an atrial septal defect or patent foramen ovale as noted on 2-D or Doppler imaging. AORTIC VALVE The aortic valve is calcified but opens well. Doppler and Color Flow revealed no significant aortic r egurgitation. There is no significant aortic valvular stenosis. MITRAL VALVE The mitral valve is calcified but opens well. Mitral annular calcification is mild. There is no evide nce of mitral valve prolapse. There is no mitral valve stenosis. Doppler and Color Flow revealed no m itral valve regurgitation noted. TRICUSPID VALVE The tricuspid valve is normal in structure and function. Doppler and Color Flow revealed trace tricus pid valve regurgitation. There is no tricuspid valve stenosis. PULMONIC VALVE The pulmonic valve is not well visualized. Doppler and Color Flow revealed no pulmonic valvular regur gitation. There is no pulmonic valvular stenosis. GREAT VESSELS The aortic root is normal in size. The ascending aorta is normal in size. The IVC is normal in size a nd collapses >50% with inspiration. PERICARDIAL EFFUSION There is no evidence of significant pericardial effusion. Critical Notification Critical Value: No <Conclusion> The left ventricle is normal size. Left ventricle systolic function is moderately impaired. The Ejection Fraction is 35-40%. There is global hypokinesis of the left ventricle. Apical motion consistent with pacemaker activation. Doppler and Color Flow revealed no significant aortic regurgitation. There is no significant aortic valvular stenosis. Doppler and Color Flow revealed no mitral valve regurgitation noted. Doppler and Color Flow revealed trace tricuspid valve regurgitation. Signed by : Tyler Lopez MD Electronically Approved : 04/18/2020 17:28:17
== END ==
LOC: ECHO 09:32
PROVIDERS: ATTEND Internal Medicine Cardiovascular Disease
DX: I08.0 Rheumatic disorders of both mitral and aortic valves (principal); I42.9 Cardiomyopathy, unspecified
CPT/HCPCS: 36415; 80053; 83880; 93306

== ENCOUNTER → 2021-06-07 | Day surgery (SDC) | payer MEDICARE ==
[~2021-06-07] MED LIST changes: +CEPH500T PO; +DULA1.5P SQ; +EMPA25TA PO; +FENO145T3 PO; +FERR15DR16 PO; +LEVO112T2 PO; +LISI10TA16 PO; -LISI10TA2 PO; +LOSA50TA86 PO; +PREG50CA PO; +SERT100T PO; +SUMA100T4 PO
[2021-06-07 12:37] VITALS: BP 127/63
== END | disposition home or self-care (01) ==
LOC: SURG 12:09
PROVIDERS: ATTEND Anesthesiology
DX: G43.709 Chronic migraine without aura, not intractable, without status migrainosus (principal)
CPT/HCPCS: 99214; G0463

== ENCOUNTER → 2021-09-06 | Day surgery (SDC) | payer MEDICARE ==
[~2021-09-06] MED LIST changes: +BUPIVACAINE MPF 0.25% 10 ML VIAL. ONE; -EMPA25TA PO; +EMPA25TA3 PO; -FENO134C PO; +FENO134C21 PO; +LIDOCAINE 1% PF 30 ML VIAL. ONE
[2021-09-06 12:53] VITALS: BP 104/49
== END | disposition home or self-care (01) ==
LOC: SURG 11:57
PROVIDERS: ATTEND Anesthesiology
DX: M47.816 Spondylosis without myelopathy or radiculopathy, lumbar region (principal); E11.9 Type 2 diabetes mellitus without complications; I50.9 Heart failure, unspecified; G43.711 Chronic migraine without aura, intractable, with status migrainosus; Z79.899 Other long term (current) drug therapy; Z88.8 Allergy status to other drugs, medicaments and biological substances
CPT/HCPCS: 64493; 64494; A4657; A4930; J3490

== ENCOUNTER 2021-09-12 17:14 | Emergency (ER) | payer MEDICARE ==
[~2021-09-12] VITALS: Ht 160 cm; Wt 65.9 kg
[~2021-09-12 17:14] MED LIST changes: -BUPIVACAINE MPF 0.25% 10 ML VIAL. ONE; -LIDOCAINE 1% PF 30 ML VIAL. ONE
[2021-09-12 18:09] LABS: BASO % 1 % (0-3); EOS # 0.1 x10^3/uL (0.0-0.7); EOS % 1 % (0-3); HEMATOCRIT 23.5 % (36.0-47.0); LYMPH # 0.7 x10^3/uL (1.0-4.8); LYMPH % 12 % (24-48); MEAN CORPUSCULAR HEMOGLOBIN 16 pg (25-35); MEAN CORPUSCULAR HGB CONC 28 g/dL (31-37); MEAN CORPUSCULAR VOLUME 55 fL (79-100); MONO # 0.4 x10^3/uL (0.0-1.1); MONO % 6 % (0-9); NEUT # 4.5 x10^3uL (1.8-7.7); NEUT % 81 % (31-73); PLATELET COUNT 205 x10^3/uL (140-400); RED BLOOD COUNT 4.27 x10^6/uL (3.50-5.40); WHITE BLOOD COUNT 5.6 x10^3/uL (4.0-11.0)
[2021-09-12 18:10] LABS: CREATININE 1.1 mg/dL (0.6-1.0)
[2021-09-12 18:11] LABS: GFR 48.7; POTASSIUM 4.2 mmol/L (3.5-5.1)
[2021-09-12 18:16] LABS: ALBUMIN 3.7 g/dL (3.4-5.0); ALBUMIN/GLOBULIN RATIO 0.9 (1.0-1.7); TOTAL BILIRUBIN 0.4 mg/dL (0.2-1.0); TOTAL PROTEIN 7.8 g/dL (6.4-8.2)
[2021-09-12 18:21] LABS: HEMOGLOBIN 6.6 g/dL (12.0-15.5)
--- NOTE | 2021-09-12 18:24 | PHYS DOC ---
Past History Past Medical History: Anxiety, Diabetes, High Cholesterol, Hypertension, Hypothyroid Additional Past Medical Histor: cirrhosis Past Surgical History: Hysterectomy, Pacemaker, Other Alcohol Use: None Drug Use: None Adult General Chief Complaint Chief Complaint: ABNORMAL LABS HPI HPI Patient is a 71-year-old female with a past medical history of heart failure, insulin-dependent diabetes, hypertension, hyperlipidemia and anxiety who presents to the emergency department at the request of her primary care physician after visiting her this morning, and getting a call with afternoon stating that her hemoglobin was 6.6. Patient states she has been working with her primary care physician over the past couple of months due to profound fatigue and just not feeling well. Denies any recent travels, traumas, illness, fevers, chest pain, shortness of breath, nausea, vomiting, diarrhea. Does endorse some feelings of abdominal discomfort/distention on the lower left. Denies any dysuria or hematuria. Denies any blood in the stools. States she is been eating and drinking normally for her. States she is making urine and stool normally for her. States she is never been diagnosed with anemia or had a blood transfusion in the past. Review of Systems Review of Systems Review of systems otherwise unremarkable except noted in HPI Allergies Allergies Allergies Coded Allergies Type Severity Reaction Last Updated Verified Penicillins Allergy Intermediate 06/07/21 Yes Sulfa (Sulfonamide Antibiotics) Allergy Intermediate 06/07/21 Yes iohexol Allergy Intermediate CONTRAST MEDIA 06/07/21 Yes Iodinated Contrast Media Allergy Unknown 06/07/21 Yes Latex, Natural Rubber Allergy Unknown itchy 06/07/21 Yes Physical Exam Physical Exam Constitutional: Well developed, well nourished, no acute distress, non-toxic appearance. [] HENT: Normocephalic, atraumatic, oropharynx dry, no oral exudates, nose normal. [] Eyes: PERRLA, EOMI, conjunctiva pale, no discharge. [] Neck: Normal range of motion, no tenderness, supple, no stridor. [] Cardiovascular:Heart rate regular rhythm, no murmur [] Lungs & Thorax: No respiratory distress or abnormal breath sounds Abdomen: soft, mild generalized tenderness worse in the lower left, no masses, no pulsatile masses. [] Skin: Warm, dry, no erythema, no rash. [] Back: No tenderness, no CVA tenderness. [] Extremities: No tenderness, no cyanosis, no clubbing, ROM intact, no edema. [] Neurologic: Alert and oriented X 3, normal motor function, normal sensory function, able to sit, stand and walk, no focal deficits noted. [] Psychologic: Affect normal, judgement normal, mood normal. [] Current Patient Data Vital Signs Vital Signs Date Time Temp Pulse Resp B/P (MAP) Pulse Ox O2 Delivery O2 Flow Rate FiO2 09/12/21 17:32 98.4 92 18 121/83 (96) 99 Room Air Lab Results Laboratory Tests Test 09/12/21 17:41 Sodium Level 134 mmol/L (136-145) L Potassium Level 4.2 mmol/L (3.5-5.1) Chloride Level 100 mmol/L (98-107) Carbon Dioxide Level 25 mmol/L (21-32) Anion Gap 9 (6-14) Blood Urea Nitrogen 22 mg/dL (7-20) H Creatinine 1.1 mg/dL (0.6-1.0) H Estimated GFR (Cockcroft-Gault) 48.7 BUN/Creatinine Ratio 20 (6-20) Glucose Level 232 mg/dL (70-99) H Calcium Level 9.0 mg/dL (8.5-10.1) Total Bilirubin Pending Aspartate Amino Transferase (AST) Pending Alanine Aminotransferase (ALT) Pending Alkaline Phosphatase Pending Total Protein Pending Albumin Pending Albumin/Globulin Ratio Pending EKG EKG [] Radiology/Procedures Radiology/Procedures [] Heart Score C/O Chest Pain: No Risk Factors: Risk Factors: DM, Current or recent (<one month) smoker, HTN, HLP, family his tory of CAD, obesity. Risk Scores: Risk Factors: DM, Current or recent (<one month) smoker, HTN, HLP, family history of CAD, obesity. Course & Med Decision Making Course & Med Decision Making Patient is a 71-year-old female who presents with a chief complaint of abnormal hemoglobin in her primary care physician's office today of 6.6 Vital signs not concerning. Physical exam noted above. Placed on the monitor with IV access established. EKG with a rate of 90, QRS of 90, QTc 462, no STEMI. [place] segment elevated. Chest x-ray nonconcerning. Laboratory and Alysis notable for microcytic anemia with hypochromasia and hemoglobin of 6.6. 1 unit of blood given. Chest x-ray nonconcerning. No acute findings on CT of the abdomen pelvis. Discussed findings with patient. Recommended admission to [place] for continued evaluation and treatment and GI consult. Family grateful, verbalized understanding and agree with plan of transfer. [] Dragon Disclaimer Dragon Disclaimer This electronic medical record was generated, in whole or in part, using a voice recognition dictation system. Departure Departure: Impression: Primary Impression: Microcytic anemia Additional Impression: Low hemoglobin Disposition: HOME / SELF CARE / HOMELESS Admitting Physician: Birgit Montelongo Condition: STABLE Referrals: KOKO SCHMIDT DO (PCP) Problem Qualifiers REESE GALLO MD Sep 12, 2021 18:24
--- NOTE | 2021-09-12 19:43 | RAD ---
INDICATION: Reason: LLQ pain/ Spl. Instructions: / History: COMPARISON: February 2018 TECHNIQUE: Axial CT images were obtained through the abdomen and pelvis without intravenous contrast. One or more of the following individualized dose reduction techniques were utilized for this examinat ion: 1. Automated exposure control; 2. Adjustment of the mA and/or kV according to patient size; 3 . Use of iterative reconstruction technique. FINDINGS: Partial visualization of pacemaker leads as well as coronary artery calcific atherosclerosis. Vascular: Severe calcific atherosclerosis. Lymphadenopathy is seen including in the bilateral groin. For example in the right groin there is a l ymph node measuring up to about 14 mm short axis. There are some adjacent mild haziness of the fat. Fat-containing inguinal hernias. Hepatobiliary: Liver is enlarged. There is a probable cystic lesion in segment 4. Gallbladder is cont racted with high density material within which could be from stones and sludge. Pancreas: No peripancreatic edema. Spleen: Spleen is enlarged. Renal/Bladder: Mild prominence of the bilateral renal pelvis. Urinary bladder is well distended at ti me of exam. No definite radiopaque obstructing ureter stone. There is distention of the urethra. Gastrointestinal: The appendix measures up to about 7 mm without definite adjacent inflammatory andino es. There is some high density material in the subcutaneous fat anteriorly overlying the abdomen and pelv is. Could be from causes such as fibrosis or bruising. Degenerative changes of the spine with multilevel central canal and neural foraminal stenosis. Scolio tic curvature the spine. Severe degenerative changes of the hips. IMPRESSION: * The appendix is mildly dilated but it also appeared mildly dilated on prior and there is no defin ite adjacent inflammatory changes therefore this does not fulfill all of the CT criteria for appendic itis. * Hepatosplenomegaly is seen. There is also some lymphadenopathy including within the bilateral groi n. Could be reactive or neoplastic and would correlate as to whether the patient has any history of n eoplasm given these findings. * Urinary bladder is distended with dilatation of the urethra. Would correlate with symptoms to ensu re that there is no prolapse. * Severe atherosclerotic disease. Electronically signed by: Yunior Salazar MD (09/12/2021 7:41 PM) [id number]
--- NOTE | 2021-09-12 20:04 | RAD ---
XR CHEST 1V History: Pain Comparison: August 14, 2019 Findings: No consolidation or pleural effusion. Normal heart size. No pneumothorax. Right-sided pacemaker, unch anged. Glenohumeral DJD. Impression: 1. No acute cardiopulmonary process. Electronically signed by: Joaquin Simms DO (09/12/2021 8:02 PM) [facility]
[2021-09-12 20:15] LABS: BACTERIA,URINE 0 /HPF (0-FEW); CLARITY,URINE CLEAR; COLOR,URINE YELLOW; GLUCOSE,URINE 500 mg/dL (NEG); NITRITE,URINE NEG (NEG); RBC,URINE 0 /HPF (0-2); SQUAMOUS EPITHELIAL CELL,UR OCC /LPF; UROBILINOGEN,URINE 0.2 mg/dL (0.2 mg/dL); WBC,URINE 0 /HPF (0-4)
[2021-09-12 20:25] LABS: ANISOCYTOSIS PRESENT; PLT ESTIMATE ADEQUATE (ADEQUATE)
[2021-09-12 20:26] LABS: HYPOCHROMIA MOD
[2021-09-12 20:28] LABS: MICROCYTOSIS MOD
[2021-09-12 20:30] LABS: OVALOCYTES MOD; SCHISTOCYTES FEW; STOMATOCYTES OCC
[2021-09-12 20:32] LABS: TEAR DROP CELLS FEW
[2021-09-12] MEDS ORDERED: IV NORMAL SALINE 500ML 500 ML IV ONE (22:00)
[2021-09-12 22:08] LABS: INFLUENZA A PATIENT NEGATIVE (NEGATIVE)
[2021-09-12 22:09] LABS: INFLUENZA B PATIENT POSITIVE (NEGATIVE)
[2021-09-12 22:30] VITALS: BP 117/60
[2021-09-12 22:55] VITALS: BP 126/63
--- NOTE | 2021-09-14 00:30 | EKG ---
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
== END 2021-09-12 23:36 | disposition home or self-care (01) ==
LOC: ER 17:14
DX: D50.9 Iron deficiency anemia, unspecified (principal); F41.9 Anxiety disorder, unspecified; E11.9 Type 2 diabetes mellitus without complications; E78.00 Pure hypercholesterolemia, unspecified; I10 Essential (primary) hypertension; E03.9 Hypothyroidism, unspecified; Z20.822 Contact with and (suspected) exposure to COVID-19; Z90.710 Acquired absence of both cervix and uterus; Z95.0 Presence of cardiac pacemaker; Z88.2 Allergy status to sulfonamides; Z88.0 Allergy status to penicillin; Z88.8 Allergy status to other drugs, medicaments and biological substances; Z91.040 Latex allergy status; Z91.041 Radiographic dye allergy status
CPT/HCPCS: 36415; 36430; 71045; 74176; 80053; 81001; 83735; 84484; 85025; 86850; 86900; 86901; 86920; 87426; 87804; 93005; 99285; C9803; P9016; U0003